=== PATIENT | female | born 1975 | race Caucasian/White ===

== ENCOUNTER 2019-12-06 10:36 | Outpatient (CLI) | payer OTHER, SELFPAY ==
--- NOTE | ~2019-12-06 | MM_ITS ---
EXAMINATION: MM screening cameron BI w urbano HISTORY: Screening mammogram TECHNIQUE: Craniocaudal and mediolateral oblique 3-D tomosynthesis images were obtained and synthetic 2-D images were generated. Bilateral rotated lateral CC views. .CAD analysis was submitted and inter preted. COMPARISON: 05/03/2018, 03/26/2016 bilateral digital screening mammogram examinations BREAST PARENCHYMAL COMPOSITION: The breasts are heterogeneously dense, which may obscure small masses . FINDINGS: There is no evidence of suspicious mass, calcification, or architectural distortion to sugg est malignancy in either breast. There has been no suspicious interval change. IMPRESSION: 1. No mammographic evidence of malignancy. 2. Recommend routine screening mammography in one year. BI-RADS Category 1: Negative Reviewed, dictated and finalized at location A.
== END 2019-12-06 10:37 | disposition home or self-care (01) ==
PROVIDERS: PCP Family Medicine; Visit Provider Nurse Practitioner
DX: Z12.31 Encounter for screening mammogram for malignant neoplasm of breast (principal)
CPT/HCPCS: 77063; 77067

== ENCOUNTER 2020-06-25 06:51 | Outpatient (NON) | payer OTHER, SELFPAY ==
[2020-06-26 00:16] LABS: SARS-CoV-2 RNA PCR Negative
== END 2020-06-25 06:52 ==
PROVIDERS: PCP Physician Assistant; Visit Provider Physician Assistant
DX: Z20.822 Contact with and (suspected) exposure to COVID-19 (principal)
CPT/HCPCS: C9803; U0003; U0005

== ENCOUNTER → 2021-05-22 12:21 | Outpatient (CLI) | payer OTHER, SELFPAY ==
--- NOTE | ~2021-05-22 | US_ITS ---
EXAMINATION: US renal BI EXAM DATE: 05/22/2021 12:43 INDICATION: N28.9 - Disorder of kidney and ureter, unspecified. TECHNIQUE: Multiple grayscale and Doppler images of the kidneys were obtained (by a technologist who performed the scan) and subsequently reviewed. There is no prior study for comparison. FINDINGS: Right kidney: There is normal contour and echogenicity. It measures 9.4 x 3.6 x 5.1 centimeters. Th ere are no focal renal lesions identified. There is no hydronephrosis. Left kidney: There is normal contour and echogenicity. It measures 10.0 x 5.5 x 4.6 centimeters. Th ere are no focal renal lesions identified. There is no hydronephrosis. Bladder unremarkable. IMPRESSION: Sonographically unremarkable kidneys. Reviewed, dictated and finalized at location A. NT SERVICE MANAGER
== END ==
PROVIDERS: PCP Family Medicine; Visit Provider Physician Assistant
DX: N28.9 Disorder of kidney and ureter, unspecified (principal)
CPT/HCPCS: 76775

== ENCOUNTER → 2021-06-12 12:24 | Outpatient (CLI) | payer OTHER, SELFPAY ==
--- NOTE | ~2021-06-12 | XR_ITS ---
EXAMINATION: XR lumbar spine min 4V DATE: 06/12/2021 12:55 INDICATION: Low back pain TECHNIQUE: Anteroposterior, lateral, and bilateral oblique views of the lumbar spine, and cone-down l ateral view of the lumbosacral junction were obtained. COMPARISON: None. FINDINGS: There are 2 mm of retrolisthesis of L5 on S1. The vertebral body heights are maintained. Th ere is no fracture. There is mild facet osteoarthritis of the lower lumbar spine. There is mild loss of intervertebral disc space height at L1-2 and L4-5. Small degenerative osteophytes project from the anterior endplates of multiple vertebral bodies. IMPRESSION: 1. Mild lumbar spondylosis without acute findings. Reviewed, dictated and finalized at location F. ATRIC PHYSICIAN
--- NOTE | ~2021-06-12 | XR_ITS ---
EXAMINATION: XR sacroiliac joints min 3V INDICATION: Low back pain TECHNIQUE: Three views of the sacroiliac joints are obtained. COMPARISON: None available FINDINGS: Bone alignment is normal. There is no fracture. No abnormal sclerosis or erosions are ident ified. The soft tissues are unremarkable. IMPRESSION: 1. Unremarkable sacroiliac joints. Reviewed, dictated and finalized at location F. DEFENSE CONTROL OFFICER
== END ==
PROVIDERS: PCP Physician Assistant; Visit Provider Physician Assistant
DX: M47.816 Spondylosis without myelopathy or radiculopathy, lumbar region (principal)
CPT/HCPCS: 72110; 72202

== ENCOUNTER 2021-08-06 10:00 | Outpatient (CLI) | payer OTHER, SELFPAY ==
--- NOTE | ~2021-08-06 | MM_ITS ---
EXAMINATION: MM screening cameron BI w urbano HISTORY: Screening mammogram TECHNIQUE: Craniocaudal and mediolateral oblique 3-D tomosynthesis images were obtained and synthetic 2-D images were generated. CAD analysis was submitted and interpreted. COMPARISON: 12/02/2019, 05/03/2018, 03/26/2016 bilateral screening mammogram examinations BREAST PARENCHYMAL COMPOSITION: The breasts are heterogeneously dense, which may obscure small masses . FINDINGS: There is no evidence of suspicious mass, calcification, or architectural distortion to sugg est malignancy in either breast. There has been no suspicious interval change. IMPRESSION: 1. No mammographic evidence of malignancy. 2. Recommend routine screening mammography in one year. BI-RADS Category 1: Negative Reviewed, dictated and finalized at location A. HING MILL OPERATOR
== END 2021-08-06 10:01 | disposition home or self-care (01) ==
PROVIDERS: PCP Family Medicine; Visit Provider Obstetrics & Gynecology Gynecology
DX: Z12.31 Encounter for screening mammogram for malignant neoplasm of breast (principal)
CPT/HCPCS: 77063; 77067

== ENCOUNTER 2021-09-29 15:08 | Outpatient (CLI) | payer OTHER, SELFPAY ==
--- NOTE | ~2021-09-29 | DEXA_ITS ---
Bone Density Report Name: LANEY AGUILERA Age: 46 Sex: Female Ethnicity: White Date of : 1975 Indication: postmenopausal; Referring Provider: CHARLY, ARIADNA Study: Bone densitometry was performed. Exam Date: September 29, 2021 Accession number: [id number] Bone Density: Region BMD T-score Z-score Classification AP Spine(L1-L4) 1.040 -0.1 0.6 Normal Femoral Neck (Left) 0.926 0.7 1.3 Normal Total Hip (Left) 0.989 0.4 0.8 Normal Femoral Neck (Right) 0.903 0.5 1.1 Normal Total Hip (Right) 1.019 0.6 1.0 Normal Total Hip Mean 1.004 0.5 0.9 Normal World Health Organization criteria for BMD impression classify patients as: Normal (T-score at or above -1.0), Osteopenia (T-score between -1.0 and -2.5), or Osteoporosis (T-score at or below -2.5). 10-year Fracture Risk: FRAX not reported because: All T-scores for Spine Total, Hip Total, Femoral Neck at or above -1.0 Clinical Information Provided by Patient: Onset of menses at age 11 Number of children 2 Impression: The patient has normal bone mass. Discussion: BONE DENSITY IS ABOVE THE MINIMUM DESIRABLE LEVEL AT ALL SKELETAL SITES TESTED. This patient?s bone mineral density is above the minimum desirable level (T-score -1.0 or better) at all sites measured. The patient should follow a healthful lifestyle (good nutrition with adequate calcium and vitamin D, and appropriate weight-bearing exercise). Follow-Up: Consider repeating this study in 5 years or sooner if there is some new clinical indication. Reported by: KEEGAN on 09/30/2021 1:06:00 PM. Reviewed, dictated and finalized at location A.
== END 2021-09-29 15:09 | disposition home or self-care (01) ==
LOC: ANHIMG 15:18
PROVIDERS: PCP Family Medicine; Visit Provider Internal Medicine Endocrinology, Diabetes & Metabolism
DX: R82.994 Hypercalciuria (principal)
CPT/HCPCS: 77080

== ENCOUNTER 2022-04-01 07:29 | Outpatient (CLI) | payer OTHER, SELFPAY ==
--- NOTE | 2022-04-21 17:39 | WPDSLEEPSTUD ---
Sleep Study Date of Study: 04/01/22 Ordering Provider: MADISON Padilla Interpreting Physician: Ingris Cameron DO Sleep Study Type: Polysomnogram Height: 1.63 m Weight: 79.379 kg Body Mass Index: 30.0 Neck Circumference (inches): 14 [place]: 3 Reason for Sleep Study Daytime hypersomnia Sleep History The patient is a 47-year-old female with anxiety, hyperlipidemia, atopic dermatitis and lumbar disc disease that had a sleep study ordered for evaluation of daytime hypersomnia. The patient denies awakening from sleep short of breath. She frequently awakens at night with heartburn, belching or cough. She occasionally snores but it is rarely loud enough that others complain. She rarely has trouble sleeping when she has a cold. She denies waking up gasping for air throughout the night. She denies having breathing problems at night observed by herself or others. She rarely sweats excessively at night. She denies having heart palpitations or irregular heartbeats during the night. He rarely falls asleep during the day and never while driving. She denies sleep paralysis, cataplexy and hypnagogic / hypnopompic hallucinations. She rarely has trouble at school or work due to sleepiness. She denies feeling of going sleep she rarely has nightmares. She rarely remembers her dreams. She occasionally has thoughts racing through her mind. She rarely feels sad or depressed. She rarely has anxiety. She denies having muscular tension. She occasionally notices parts of her body jerk. She rarely kicks during the night. She denies having crawling and aching feelings in her legs as well as leg pain during the night. He rarely grinds her teeth during sleep and never awakens with a morning jaw pain. She is occasionally bothered by pain during the day and occasionally awakened by pain during the night. She frequently wakes up feeling stiff in the morning. She frequently wakes up with sore or achy muscles. She occasionally wakes up with pain in the neck, spine or other joints. She goes to bed at 9:00 p.m. on weekdays and between 9-10 p.m. on the weekends. He can take or 5-60 minutes to fall asleep she wakes up 2-3 times throughout the night for unknown reasons. It takes her 5-15 minutes to fall back asleep. She wakes up between 7-8 a.m. on both weekdays and weekends. She typically gets 8-9 hours of sleep per night. She will stay in bed for 30 minutes after waking up in the morning. She currently lives with her . She does not consume any caffeinated beverages within 2 hours of bedtime. She does not engage in physical exercise before bedtime. She will watch television before falling asleep. She denies taking naps in the afternoon or the evening. She does not consume any caffeinated beverages throughout the day. She denies tobacco, alcohol and recreational drug use. [facility] Past Medical History Medical History Atopic dermatitis Fatigue TONY (generalized anxiety disorder) HLD (hyperlipidemia) Lumbar degenerative disc disease Surgical History Surgical History History of carpal tunnel repair [place] teeth removed Family History Family History Father Family history of lung cancer Social History Social History Smoking status: Never smoker Second hand tobacco smoke exposure: No Alcohol intake: current Alcohol use details: SOCIAL Substance use: never Substance use type: does not use 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 Gender identity (if verbalized by the patient): Female Spiritual care concerns: Yes Agree to blood products: Yes Medications Home Medications Medication Instructions Recorded Confirmed Type hydrochlorothiazide 25 mg tablet 25 mg PO DAILY 08/01/19
== END 2022-04-02 07:07 | disposition home or self-care (01) ==
PROVIDERS: PCP Family Medicine; Visit Provider Physician Assistant Medical
DX: G47.10 Hypersomnia, unspecified (principal); G47.33 Obstructive sleep apnea (adult) (pediatric); R53.83 Other fatigue
CPT/HCPCS: 95810

== ENCOUNTER 2022-07-16 00:40 | Day surgery (SDC) | payer OTHER, SELFPAY ==
[2022-07-02 09:48] VITALS: BMI 28.3
--- NOTE | 2022-07-15 13:05 | PM.HPGS ---
History of Present Illness History of Present Illness Consent: Risks, benefits, and alternatives have been discussed and questions answered. Patient agrees to proceed with procedure. Chief complaint: neoplasm screening Narrative: Mirlande Braswell is a 47 year old female Referred for colon cancer screening. Review of Systems Review of Systems: All systems reviewed & are unremarkable except as noted in HPI and below PMFSH Past Medical History Medical History Atopic dermatitis Fatigue TONY (generalized anxiety disorder) HLD (hyperlipidemia) Lumbar degenerative disc disease Surgical History Surgical History History of carpal tunnel repair [place] teeth removed Family History Family History Father Family history of lung cancer Social History Social History Smoking status: Never smoker Second hand tobacco smoke exposure: No Alcohol intake: current Drinks per week: 2 Alcohol use details: SOCIAL Substance use: never Substance use type: does not use Living arrangements: with family Occupation/Education: other 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 Gender identity (if verbalized by the patient): Female Spiritual care concerns: No Agree to blood products: Yes Meds Home Medications and Allergies Home Medications Medication Instructions Recorded Confirmed Type hydrochlorothiazide 25 mg tablet 25 mg PO DAILY 08/01/19 07/16/22 History ytwqwyfxtggf-Au-jxnk-minerals 27 1 tablet PO DAILY 08/01/19 07/16/22 History mg-0.4 mg tablet (One Daily Women's) cholecalciferol (vitamin D3) 50 100 mcg PO DAILY 05/15/21 07/16/22 History mcg (2,000 unit) capsule dextroamphetamine-amphetamine ER 20 mg PO DAILY PRN FOCUS 07/02/22 07/16/22 History 20 mg 24hr capsule,extend release (Adderall XR) potassium chloride 20 mEq 20 meq PO DAILY 07/02/22 07/16/22 History tablet,extended release(part/cryst) (Klor-Con M) progesterone micronized 200 mg 200 mg PO QPM 07/02/22 07/16/22 History capsule semaglutide 1 mg/dose (4 mg/3 mL) 1 mg subcut WEEKLY 07/02/22 07/16/22 History subcutaneous pen injector (Ozempic) thyroid (pork) 90 mg tablet (SOFTWARE ENGINEER KERNEL 90 mg PO DAILY 07/02/22 07/16/22 History Thyroid) Allergies Allergy/AdvReac Type Severity Reaction Status Date / Time No Known Allergies Allergy Verified 07/16/22 06:44 Exam Const: General: alert Orientation/consciousness: patient oriented x3 Resp: Auscultation: clear to auscultation bilaterally Cardio: Rhythm: regular rhythm GI: GI Palp: Yes Soft to palpation and No Tenderness to palpation present (GI) Neuro: General: patient oriented x3 Assessment and Plan Assessment and plan (1) Colon cancer screening: Code(s): Z12.11 - Encounter for screening for malignant neoplasm of colon Status: Acute Assessment and Plan: Colonoscopy with possible biopsy or polypectomy or cautery or injection of substances.
[2022-07-16 06:46] VITALS: BP 129/74; PULSE 110; RESP 20; TEMP 36.2; O2SAT 100; BMI 28.5
[2022-07-16] MEDS: LACTATED RINGERS 1,000 ML 150 ML IV CONT (07:04)
[2022-07-16] MEDS: ONDANSETRON INJ 4 MG/2 ML VIAL IV PUSH (07:14)
--- NOTE | 2022-07-16 07:35 | WPDANESEPPF ---
Anes - Initial Pre Proc Eval Procedure: Operation Date: 07/16/22 08:00 Proposed Procedures p Screening Colonoscopy - Artie Francisco MD Date/Time: 07/16/22 07:35 Surgeon: Artie Francisco MD Pre Op Diagnosis: neoplasm screening Patient Data Age: 47 Gender: F Height: 1.63 m Weight: 75.5 kg Last Vital Signs Temp 97.2 F L 07/16/22 06:46 Pulse 110 H 07/16/22 06:46 Resp 20 07/16/22 06:46 BP 129/74 07/16/22 06:46 Pulse Ox 100 07/16/22 06:46 O2 Del Method Room Air 07/16/22 06:46 Allergies Allergy/AdvReac Type Severity Reaction Status Date / Time No Known Allergies Allergy Verified 07/16/22 06:44 Home Medications Medication Instructions Recorded Confirmed Type hydrochlorothiazide 25 mg tablet 25 mg PO DAILY 08/01/19 07/16/22 History uadqlabyphzy-Jf-udng-minerals 27 1 tablet PO DAILY 08/01/19 07/16/22 History mg-0.4 mg tablet (One Daily Women's) cholecalciferol (vitamin D3) 50 100 mcg PO DAILY 05/15/21 07/16/22 History mcg (2,000 unit) capsule dextroamphetamine-amphetamine ER 20 mg PO DAILY PRN FOCUS 07/02/22 07/16/22 History 20 mg 24hr capsule,extend release (Adderall XR) potassium chloride 20 mEq 20 meq PO DAILY 07/02/22 07/16/22 History tablet,extended release(part/cryst) (Klor-Con M) progesterone micronized 200 mg 200 mg PO QPM 07/02/22 07/16/22 History capsule semaglutide 1 mg/dose (4 mg/3 mL) 1 mg subcut WEEKLY 07/02/22 07/16/22 History subcutaneous pen injector (Ozempic) thyroid (pork) 90 mg tablet (SPECIAL EDUCATION DIRECTOR 90 mg PO DAILY 07/02/22 07/16/22 History Thyroid) Patient hx anesthesia problems: none Family hx anesthesia problems: none Results Review: All pre-operative results and documents have been reviewed as part of the pre-operative evaluation. [facility] Past Medical History Medical History Atopic dermatitis Fatigue TONY (generalized anxiety disorder) HLD (hyperlipidemia) Lumbar degenerative disc disease Surgical History Surgical History History of carpal tunnel repair [place] teeth removed Family History Family History Father Family history of lung cancer Social History Social History Smoking status: Never smoker Second hand tobacco smoke exposure: No Alcohol intake: current Drinks per week: 2 Alcohol use details: SOCIAL Substance use: never Substance use type: does not use Living arrangements: with family Occupation/Education: other 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 Gender identity (if verbalized by the patient): Female Spiritual care concerns: No Agree to blood products: Yes Anes - Eval Final PreProcedure Day of Procedure 07/16/22 07:35 Patient weight: normal Heart: regular rate and rhythm Lungs: clear to auscultation Airway: Mallampati scale class II Neurological: alert and oriented Last oral intake: >/= 8 hours ASA classification: II Emergent: no Anesthetic plan: proceed Anesthesia type and monitoring: general GIVS and standard monitoring Results Review: All pre-operative results and documents have been reviewed as part of the pre-operative evaluation. Informed Consent: The patient's anesthetic plan and its attendant risks and benefits were discussed with the patient/family/POA. Questions were solicited and answers provided to the satisfaction of the patient/family/POA.
[2022-07-16 08:17] VITALS: BP 101/61; PULSE 87; RESP 22; O2SAT 100
[2022-07-16 08:27] VITALS: BP 102/56; PULSE 83; RESP 13; O2SAT 100
[2022-07-16 08:37] VITALS: BP 105/63; PULSE 81; RESP 13; O2SAT 100
== END 2022-07-16 08:55 | disposition home or self-care (01) ==
PROVIDERS: PCP Family Medicine; Visit Provider Internal Medicine Gastroenterology
PROC: 0DJD8ZZ Inspection of Lower Intestinal Tract, Via Natural or Artificial Opening Endoscopic (ICD-10-PCS; CPT 45378; principal; 2022-07-16 08:00)
DX: Z12.11 Encounter for screening for malignant neoplasm of colon (principal); E78.5 Hyperlipidemia, unspecified; F41.1 Generalized anxiety disorder; Z79.899 Other long term (current) drug therapy
CPT/HCPCS: 45378; J2405; J2704; J7120

== ENCOUNTER 2022-09-23 21:15 | Emergency (ER) | payer OTHER, SELFPAY ==
[2022-09-23 21:18] VITALS: BP 115/80; PULSE 105; RESP 18; TEMP 37.9; O2SAT 100
[2022-09-24] MEDS: ACETAMINOPHEN 500 MG TABLET 1000 MG PO (01:19)
[2022-09-24 01:23] LABS: Strep Group A RT-PCR DETECTED (Negative)
[2022-09-24 01:39] LABS: Influenza A QL RT-PCR Negative (Negative); Influenza B QL RT-PCR Negative (Negative); RSV RNA, RT-PCR Negative (Negative); SARS-CoV-2 RNA PCR Negative
[2022-09-24 02:01] LABS: Appearance Urine Clear (Clear); Bacteria Urine None Seen /hpf; Bilirubin Urine Negative (Negative); Blood Urine Negative (Negative); Color Urine Yellow (Yellow); Glucose Urine UA Negative (Negative); Ketones Urine 4+ mg/dL (Negative); Leukocyte Esterase Ur Trace LEU/UL (Negative); Nitrate Urine Negative (Negative); Non Pathogenic Casts 0-2; Protein Urine Negative (Negative); Specific Grav Ur 1.023 (1.001-1.035); Squamous Epithelial Cell Urine Few /hpf (Few); WBC Urine 0-5 /hpf
[2022-09-24 02:10] LABS: Add Urine Microscopic? YES
[2022-09-24] MEDS: SODIUM CHLORIDE 0.9% IV 1,000 ML 999 ML IV CONT (02:26)
[2022-09-24] MEDS: KETOROLAC 30 MG/ML VIAL (*BKC) IV PUSH (02:26)
[2022-09-24] MEDS: PENICILLIN G BENZATHINE 1,200,000 UNITS/2 ML SYRINGE 1200000 UNITS IM (02:33)
--- NOTE | 2022-09-24 03:21 | ED.GENADULT ---
HPI - General Adult General Chief complaint: Unspecified Stated complaint: back pain, fever, sore throat Time Seen by Provider: 09/24/22 02:03 History of Present Illness HPI narrative: Patient 47-year-old female who presents the emergency department with chief complaint of generalized malaise. Patient reports that around noon she started having a sore throat and then has had generalized body aches some abdominal discomfort and flank pain. Patient reports she started running a fever reports she is taken some naproxen earlier during the day but reports that she has not really taken much later. The patient reports she just feels generally unwell. Related Data Home Medications Medication Instructions Recorded Confirmed hydrochlorothiazide 25 mg tablet 25 mg PO DAILY 08/01/19 07/16/22 vqoshzswtrph-Sg-llha-minerals 27 1 tablet PO DAILY 08/01/19 07/16/22 mg-0.4 mg tablet (One Daily Women's) cholecalciferol (vitamin D3) 50 100 mcg PO DAILY 05/15/21 07/16/22 mcg (2,000 unit) capsule potassium chloride 20 mEq 20 meq PO DAILY 07/02/22 07/16/22 tablet,extended release(part/cryst) (Klor-Con M) progesterone micronized 200 mg 200 mg PO QPM 07/02/22 07/16/22 capsule semaglutide 1 mg/dose (4 mg/3 mL) 1 mg subcut WEEKLY 07/02/22 07/16/22 subcutaneous pen injector (Ozempic) thyroid (pork) 90 mg tablet (TELESALES TEAM LEADER 90 mg PO DAILY 07/02/22 07/16/22 Thyroid) Allergies Allergy/AdvReac Type Severity Reaction Status Date / Time No Known Allergies Allergy Verified 07/16/22 06:44 Review of Systems Review of Systems: A 10 system review of systems was completed on the patient and is negative except for what is stated in the HPI. Nursing and ancillary documentation was reviewed. [facility] Past Medical History Medical History Atopic dermatitis Fatigue TONY (generalized anxiety disorder) HLD (hyperlipidemia) Lumbar degenerative disc disease Surgical History Surgical History History of carpal tunnel repair [place] teeth removed Family History Family History Father Family history of lung cancer Social History Social History Smoking status: Never smoker Second hand tobacco smoke exposure: No Alcohol intake: current Drinks per week: 2 Alcohol use details: SOCIAL Substance use: never Substance use type: does not use Living arrangements: with family Occupation/Education: other 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 Gender identity (if verbalized by the patient): Female Spiritual care concerns: No Agree to blood products: Yes Exam Narrative: GENERAL: Well-appearing, well-nourished, and in no acute distress. HEAD: Normocephalic, atraumatic. EYES: PERRLA and EOMI. ENT: Nares clear, no rhinorrhea or epistaxis. Mucous membranes moist. Erythema and exudate present on the tonsils NECK: Supple. CHEST: Clear to auscultation. No respiratory distress. HEART: Regular rate and rhythm. No murmur heard. Normal peripheral pulses. ABDOMEN: Soft, nontender, nondistended, normal active bowel sounds. EXTREMITIES: Normal range of motion. No edema. SKIN: Warm, dry, no rash. NEURO: No focal deficits. Alert and oriented x3. PSYCH: Normal mood and affect. Course Vital Signs Vital signs: Vital Signs Temperature 37.9 C H 09/23/22 21:18 Pulse Rate 105 H 09/23/22 21:18 Respiratory Rate 18 09/23/22 21:18 Blood Pressure 115/80 09/23/22 21:18 Pulse Oximetry 100 09/23/22 21:18 Oxygen Delivery Room Air 09/23/22 21:18 Temperature 37.9 C H 09/23/22 21:18 Pulse Rate 105 H 09/23/22 21:18 Respiratory Rate 18 09/23/22 21:18 Blood Pressure 115/80 09/23/22 21:18 Pulse Oximetry 100 09/23/22 21:18 Oxygen Delivery Room Air 09/23/22 21:18
[2022-09-24 03:47] VITALS: BP 122/69; PULSE 80; RESP 18; TEMP 37.2; O2SAT 99
== END 2022-09-24 03:47 | disposition home or self-care (01) ==
PROVIDERS: Emergency Provider Emergency Medicine; PCP Family Medicine
DX: J02.0 Streptococcal pharyngitis (principal); Z20.822 Contact with and (suspected) exposure to COVID-19; E78.5 Hyperlipidemia, unspecified; Z79.85 Long-term (current) use of injectable non-insulin antidiabetic drugs
CPT/HCPCS: 81001; 87637; 87651; 96361; 96372; 96374; 96375; 99284; A9270; J0561; J1100; J1885; J7030

== ENCOUNTER 2022-11-23 09:29 | Outpatient (CLI) | payer OTHER, SELFPAY ==
--- NOTE | ~2022-11-23 | MM_ITS ---
EXAMINATION: MM screening cameron BI w ur[place]ano HISTORY: Screening mammogram TECHNIQUE: Craniocaudal and mediolateral oblique 3-D tomosynthesis images were obtained and synthetic 2-D images were generated. CAD analysis was submitted and interpreted. COMPARISON: August 06, 2021, December 06, 2019, May 03, 2018 bilateral screening mammogram examina tions BREAST PARENCHYMAL COMPOSITION: The breasts are heterogeneously dense, which may obscure small masses . FINDINGS: There is no evidence of suspicious mass, calcification, or architectural distortion to sugg est malignancy in either breast. There has been no suspicious interval change. IMPRESSION: 1. No mammographic evidence of malignancy. 2. Recommend routine screening mammography in one year. BI-RADS Category 1: Negative Reviewed, dictated and finalized at location A.
== END 2022-11-23 09:30 | disposition home or self-care (01) ==
LOC: ANHIMG 09:31
PROVIDERS: PCP Family Medicine; Visit Provider Obstetrics & Gynecology Gynecology
DX: Z12.31 Encounter for screening mammogram for malignant neoplasm of breast (principal)
CPT/HCPCS: 77063; 77067

== ENCOUNTER 2023-11-29 13:49 | Outpatient (CLI) | payer OTHER, SELFPAY ==
--- NOTE | ~2023-11-29 | MM_ITS ---
EXAMINATION: MM screening cameron BI w ur[place]ano HISTORY: Screening TECHNIQUE: Craniocaudal and mediolateral oblique 3-D tomosynthesis images were obtained and synthetic 2-D images were generated. CAD analysis was submitted and interpreted. COMPARISON: No prior mammogram is available for comparison at this institution. Comparison to multipl e prior studies sequentially, with oldest reviewed study dated 03/26/2016. BREAST PARENCHYMAL COMPOSITION: Dense: The breasts are heterogeneously dense, which may obscure small masses FINDINGS: There is no evidence of suspicious mass, calcification, or architectural distortion to sugg est malignancy in either breast. There has been no suspicious interval change. IMPRESSION: 1. No mammographic evidence of malignancy. 2. Recommend routine screening mammography in one year. BI-RADS Category 1: Negative Reviewed, dictated and finalized at location B.
== END 2023-11-29 13:50 | disposition home or self-care (01) ==
LOC: ANHIMG 13:51
PROVIDERS: PCP Family Medicine; Visit Provider Nurse Practitioner
DX: Z12.31 Encounter for screening mammogram for malignant neoplasm of breast (principal)
CPT/HCPCS: 77063; 77067

== ENCOUNTER 2023-12-27 20:30 | Observation (INO) | payer OTHER, SELFPAY ==
--- NOTE | ~2023-12-27 | CT_ITS ---
EXAMINATION: CT abdomen pelvis w con DATE: 12/27/2023 22:19 INDICATION: abd pain, n/v/d TECHNIQUE: Computed tomography (CT) of the abdomen and pelvis was performed with 100 mL Omnipaque-350 intravenous contrast. Automated exposure control and iterative reconstruction technique were employe d. The dose-length product was 749.96 mGy-cm. COMPARISON: None. FINDINGS: Lower thorax: Unremarkable Liver: Right lobe cyst or hemangioma.. Biliary/Gallbladder: Gallbladder is normal. No bile duct dilation. Pancreas: No mass or duct dilation. Spleen: Normal. Adrenals:No mass. Kidneys: No suspicious mass, obstructing stone, or hydronephrosis. GI tract: No small or large bowel dilation. Wall edema affecting multiple loops of ileum in the mid a nd right lower abdomen, with mild surrounding inflammatory change and hyperemia of the vasa recta. No rmal appendix. Mesentery/Peritoneum: No ascites, mass, or free air. Retroperitoneum: No mass. Pelvis: Mostly empty urinary bladder. Normal uterus and left ovary. 3 cm simple appearing right ovari an cyst. Soft Tissues: Soft tissues and body wall unremarkable. Bones: No acute osseous finding. IMPRESSION: Wall edema with surrounding inflammatory change affecting multiple loops of the distal ileum in the m id and right lower abdomen, which may represent infectious, inflammatory, or ischemic enteritis. 3 cm simple appearing right ovarian cyst, recommend pelvic ultrasound follow-up in 6-12 months. Reviewed, dictated and finalized at location K. IMPRESSION: Wall edema with surrounding inflammatory change affecting multiple loops of the distal ileum in the mid and right lower abdomen, which may represent infectiou s, inflammatory, or ischemic enteritis. 3 cm simple appearing right ovarian cyst, recommend pelvic ultrasound follow-up in 6-12 months.
[2023-12-27 20:48] LABS: Basophils Percent Auto 0.3 % (0.2-1.2); Eosinophils Percent Auto 0.1 % (0-4.4); Hematocrit 45.9 % (37.0-47.0); Hemoglobin 15.6 g/dL (12.0-15.0); Immature Granulocyte Absolute 0.06 K/mm3 (0.00-0.031); Immature Granulocyte Percent A 0.5 % (0-0.5); Lymphocytes Absolute Auto 1.19 K/mm3 (0.9-3.2); Lymphocytes Percent Auto 9.3 % (18.3-44.2); Mean Corpuscular Hemoglobin 29.2 pg (26-34); Mean Platelet Volume 8.9 fl (7.4-10.4); Monocytes Percent Auto 7.6 % (2.6-8.5); Neutrophils Absolute Auto 10.5 K/mm3 (1.3-6.7); Neutrophils Percent Auto 82.2 % (45.5-73.1); Platelet Count Result 353 k/mm3 (150-375); Red Blood Count 5.34 M/mm3 (4.2-5.4); White Blood Count 12.8 K/mm3 (4.5-10.0)
[2023-12-27 21:14] LABS: Alanine Aminotransferase 17 U/L (6-35); Albumin Level 4.9 g/dL (3.5-5.1); Alkaline Phosphatase 64 U/L (38-126); Anion Gap 12 mmol/L (4-12); Aspartate Amino Transferase 26 U/L (14-36); Bilirubin,Total 0.7 mg/dL (0.2-1.3); Blood Urea Nitrogen 12 mg/dL (7-17); Calcium 9.5 mg/dL (8.4-10.2); Carbon Dioxide 28 mmol/L (22-30); Chloride 96 mmol/L (98-107); Estimated CRCL calculation 66 ml/min; Estimated Glomerular Filt Rate > 60; Glucose 106 mg/dL (65-110); Lipase 85 U/L (23-300); Potassium 3.9 mmol/L (3.4-5.0); Sodium 136 mmol/L (137-145)
[2023-12-27 21:55] VITALS: BP 123/76; PULSE 101; RESP 20; TEMP 37.2; O2SAT 100
[2023-12-27 22:12] LABS: Appearance Urine Clear (Clear); Bacteria Urine 3+ /hpf; Bilirubin Urine Negative (Negative); Blood Urine Negative (Negative); Color Urine Yellow (Yellow); Glucose Urine UA Negative (Negative); Ketones Urine 3+ mg/dL (Negative); Leukocyte Esterase Ur Negative LEU/UL (Negative); Nitrate Urine Negative (Negative); Non Pathogenic Casts 0-2; Protein Urine Trace mg/dL (Negative); RBC Urine 0-2 /hpf (0-2); Specific Grav Ur 1.023 (1.001-1.035); Squamous Epithelial Cell Urine Moderate /hpf (Few); Urobilinogen Urine 0.2 mg/dL (<2.0); WBC Urine 0-5 /hpf (0-3)
[2023-12-27 22:14] LABS: Add Urine Microscopic? YES
[2023-12-28] VITALS (7 sets, daily range): BP systolic 90–103; BP diastolic 50–60; PULSE 65–104; RESP 16–18; TEMP 36.4–37.3; O2SAT 98–100
[2023-12-28] MEDS: MORPHINE SULFATE (*CRX) 4 MG/ML INJ IV PUSH ×4 (02:05→17:38)
[2023-12-28] MEDS: SODIUM CHLORIDE 0.9% IV 1,000 ML 999 ML IV CONT ×2 (02:05→04:24)
[2023-12-28] MEDS: ONDANSETRON INJ 4 MG/2 ML VIAL IV PUSH (02:06)
[2023-12-28] MEDS: DICYCLOMINE HCL INJ 20 MG/2 ML VIAL IM (02:06)
--- NOTE | 2023-12-28 03:25 | ED.GENADULT ---
HPI - General Adult General Chief complaint: Abdominal Pain Stated complaint: abdominal pain Time Seen by Provider: 12/28/23 01:43 History of Present Illness HPI narrative: Patient is a 48-year-old female who presents emergency department with chief complaint of abdominal pain and nausea. Patient reports that she had been 2 [place] and reports that when she was traveling back when she arrived in dialysis started having abdominal pain diarrhea the patient states this is very severe cramping feeling patient denies fever patient reports continued on. The patient reports no prior abdominal surgeries denies fever Related Data Home Medications Medication Instructions Recorded Confirmed hydrochlorothiazide 25 mg tablet 25 mg PO DAILY 08/01/19 07/16/22 xstbsofbcctd-Xp-vkdt-minerals 27 1 tablet PO DAILY 08/01/19 07/16/22 mg-0.4 mg tablet (One Daily Women's) cholecalciferol (vitamin D3) 50 100 mcg PO DAILY 05/15/21 07/16/22 mcg (2,000 unit) capsule potassium chloride 20 mEq 20 meq PO DAILY 07/02/22 07/16/22 tablet,extended release(part/cryst) (Klor-Con M) progesterone micronized 200 mg 200 mg PO QPM 07/02/22 07/16/22 capsule semaglutide 1 mg/dose (4 mg/3 mL) 1 mg subcut WEEKLY 07/02/22 07/16/22 subcutaneous pen injector (Ozempic) thyroid (pork) 90 mg tablet (TEST TUBE MAKER 90 mg PO DAILY 07/02/22 07/16/22 Thyroid) Allergies Allergy/AdvReac Type Severity Reaction Status Date / Time No Known Allergies Allergy Verified 12/27/23 20:33 Review of Systems Review of Systems: A 10 system review of systems was completed on the patient and is negative except for what is stated in the HPI. Nursing and ancillary documentation was reviewed. [facility] Past Medical History Medical History Atopic dermatitis Fatigue TONY (generalized anxiety disorder) HLD (hyperlipidemia) Lumbar degenerative disc disease Surgical History Surgical History History of carpal tunnel repair [place] teeth removed Family History Family History Father Family history of lung cancer Social History Social History Smoking status: Never smoker Second hand tobacco smoke exposure: No Alcohol intake: current Drinks per week: 2 Alcohol use details: SOCIAL Substance use: never Substance use type: does not use Living arrangements: with family Occupation/Education: other 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 Gender identity (if verbalized by the patient): Female Spiritual care concerns: No Agree to blood products: Yes Exam Narrative: GENERAL: Well-appearing, well-nourished, and in mild acute pain distress. HEAD: Normocephalic, atraumatic. EYES: PERRLA and EOMI. ENT: Nares clear, no rhinorrhea or epistaxis. Mucous membranes moist. NECK: Supple. CHEST: Clear to auscultation. No respiratory distress. HEART: Regular rate and rhythm. No murmur heard. Normal peripheral pulses. ABDOMEN: Soft, diffusely tender to palpation, nondistended, normal active bowel sounds. EXTREMITIES: Normal range of motion. No edema. SKIN: Warm, dry, no rash. NEURO: No focal deficits. Alert and oriented x3. PSYCH: Normal mood and affect. Course Vital Signs Vital signs: Vital Signs Temperature 37.2 C 12/27/23 21:55 Pulse Rate 101 H 12/27/23 21:55 Respiratory Rate 20 12/27/23 21:55 Blood Pressure 123/76 12/27/23 21:55 Pulse Oximetry 100 12/27/23 21:55 Temperature 37.2 C 12/27/23 21:55 Pulse Rate 104 H 12/28/23 03:16 Respiratory Rate 18 12/28/23 03:16 Blood Pressure 103/56 L 12/28/23 03:16 Pulse Oximetry 100 12/28/23 03:16 Medical Decision Making MDM Narrative Medical decision making narrative: Differential diagnosis includes gastritis, col
[2023-12-28 03:37] LABS: Lactic Acid Reflex 1.2 mmol/L (0.7-2.0)
[2023-12-28] MEDS: metroNIDAZOLE 500 MG/ISO 100ML 500 MG/100 ML BAG 100 MG IVPB ×3 (04:24→21:05)
--- NOTE | 2023-12-28 05:08 | ADMGEN ---
This patient, Mirlande Braswell, was admitted to 2 Medical Room 241-01. Patient/family oriented to hospital policies and general routines including ID bracelet, bed and alarms, visiting hours, pain management, procedures, bathroom and other care routines, personal items, smoking policy, room service/diet, and visiting hours. Information on how to activate the Rapid Response Team has been discussed. Patient/Family are encouraged to report perceived risks to care and to ask questions if they do not understand what they are told or what they should do.
[2023-12-28] MEDS: levoFLOXacin 750 MG/D5W 150 ML 750 MG/150 ML BAG 100 MG IVPB (05:15)
[2023-12-28] MEDS: SODIUM CHLORIDE 0.9% IV 1,000 ML 125 ML IV CONT ×3 (05:19→21:05)
--- NOTE | 2023-12-28 07:18 | PM.IMHP ---
H&P: HPI History of Present Illness Date/Time: 12/28/23 07:18 Chief Complaint: abd pain Narrative: 48-year-old female with PMH/o post menopausal, vit d deficiency, hypothyroidism admitted from ED with chief complaint of abdominal pain and nausea. Patient reports that she had been to [place], ate that the airport nd shortly after started having abd cramping and diarrhea. Denies any blood in stool. Describes pain as sever cramping,intermittent. Was not trying to eat anything but was trying to stay hydrated, denies fever,chills. No prior abdominal surgeries. -recent hospitalization-none -recent antibiotic use- none. She is non smoker and reports occasional alcohol. Review of Systems Constitutional: Constitutional: Denies body ache(s) and Denies chills ENT: Reports Normal hearing present Cardiovascular: Cardiovascular: Denies chest pain, Denies diaphoresis, Denies leg edema and Denies palpitations Respiratory: Respiratory: Denies chest congestion, Denies cough and Denies hemoptysis Gastrointestinal: Gastrointestinal: Reports abdominal pain, Reports diarrhea and Reports nausea Genitourinary: Genitourinary: Denies hematuria Neurologic: Denies confusion, Denies vertigo and Denies headache(s) Psychiatric: Psychiatric: Denies anxiety and Denies confusion [facility] Past Medical History Medical History Atopic dermatitis Fatigue TONY (generalized anxiety disorder) HLD (hyperlipidemia) Lumbar degenerative disc disease Surgical History Surgical History History of carpal tunnel repair [place] teeth removed Family History Family History Father Family history of lung cancer Social History Social History Smoking status: Never smoker Second hand tobacco smoke exposure: No Alcohol intake: current Drinks per week: 1 Alcohol use details: SOCIAL Substance use: never Substance use type: does not use Do You Feel Safe in your Home?: Yes Lack of Transportation: No Lack of Food: Never True Current Housing: I Do Not Have Housing Concerned About Future Housing: No Difficulty Paying Gas/Electric Bills: No Difficulty Paying for Meds: No Currently Unemployed: No Education: Associate Degree Difficulty w/ Childcare or Family Care: No Living arrangements: with family Occupation/Education: other 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 Gender identity (if verbalized by the patient): Female Spiritual care concerns: No Agree to blood products: Yes Comments reports seeing endocrinologsit who treats her with HCTZ and vit d for hypocalcemia Meds Home Medications and Allergies Home Medications Medication Instructions Recorded Confirmed Type hydrochlorothiazide 25 mg tablet 25 mg PO DAILY 08/01/19 12/28/23 History avfzthzpeskd-Xu-fjqo-minerals 27 1 tablet PO DAILY 08/01/19 12/28/23 History mg-0.4 mg tablet (One Daily Women's) cholecalciferol (vitamin D3) 50 100 mcg PO DAILY 05/15/21 12/28/23 History mcg (2,000 unit) capsule potassium chloride 20 mEq 20 meq PO DAILY 07/02/22 12/28/23 History tablet,extended release(part/cryst) (Klor-Con M) progesterone micronized 200 mg 200 mg PO QPM 07/02/22 12/28/23 History capsule thyroid (pork) 90 mg tablet (DATA TECHNICIAN 90 mg PO DAILY 07/02/22 12/28/23 History Thyroid) Allergies Allergy/AdvReac Type Severity Reaction Status Date / Time No Known Allergies Allergy Verified 12/27/23 20:33 Vital Signs Vital Signs - 24 hr 12/27/23 21:55 12/28/23 03:16 12/28/23 04:32 Temperature 98.9 F Pulse Rate 101 H 104 H 102 H Respiratory Rate 20 18 16 Blood Pressure 123/76 103/56 L 101/50 L Pulse Oximetry 100 100 99 Oxygen Delivery 12/28/23 05:11 12/28/23 05:22 Temperature 99.2 F Pulse Rate 96
[2023-12-28] MEDS: POTASSIUM CHLORIDE 20 MEQ ER TABLET PO (12:38)
[2023-12-28] MEDS: KETOROLAC 15 MG/ML VIAL (*BKC) IV PUSH ×2 (12:38→21:07)
[2023-12-28] MEDS: ACETAMINOPHEN 325 MG TABLET 650 MG PO (15:59)
[2023-12-29] VITALS (7 sets, daily range): BP systolic 88–105; BP diastolic 55–62; PULSE 71–76; RESP 16–18; TEMP 36.4–36.8; O2SAT 97–100
[2023-12-29] MEDS: levoFLOXacin 750 MG/D5W 150 ML 750 MG/150 ML BAG 100 MG IVPB (05:11)
--- NOTE | 2023-12-29 05:19 | PC.NURSE ---
Dr. Myers notified pt BP sustaining between 85/50s-90/60s, pt asymptomatic and currently receiving fluids at 125ml/hr. No new orders, continue to monitor.
[2023-12-29] MEDS: KETOROLAC 15 MG/ML VIAL (*BKC) IV PUSH (06:17)
[2023-12-29] MEDS: THYROID 30 MG TABLET 90 MG PO (06:18)
[2023-12-29] MEDS: metroNIDAZOLE 500 MG/ISO 100ML 500 MG/100 ML BAG 100 MG IVPB ×3 (06:42→21:41)
[2023-12-29 07:25] LABS: Hematocrit 36.8 % (37.0-47.0); Mean Corpuscular HGB Conc 32.6 g/dl (32-36); Mean Corpuscular Hemoglobin 29.1 pg (26-34); Mean Corpuscular Volume 89.1 fl (80-100); Platelet Count Result 221 k/mm3 (150-375); Red Blood Count 4.13 M/mm3 (4.2-5.4); Red Cell Distribution Width 13.1 % (11.5-14.5); White Blood Count 5.4 K/mm3 (4.5-10.0)
--- NOTE | 2023-12-29 07:31 | PM.IMPN ---
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 Patient reports that she had been to [place], ate that the airport nd shortly after started having abd cramping and diarrhea. Denies any blood in stool. Describes pain as sever cramping,intermittent. Was not trying to eat anything but was trying to stay hydrated, denies fever,chills. No prior abdominal surgeries. -recent hospitalization-none -recent antibiotic use- none. She is non smoker and reports occasional alcohol. 12/28- Pt is seen and examined at the bedside. WBC is down to 5.4 (12.8). Noted soft BP- 250cc bolus ordered. Pt is not symptomatic. Stool culture was obtain -results pending. advance diet if able. Review of Systems Constitutional: Constitutional: Denies body ache(s), Denies chills and Denies headache(s) ENT: Reports Normal hearing present, Denies vertigo and Denies headache(s) Cardiovascular: Cardiovascular: Denies chest pain, Denies diaphoresis, Denies leg edema and Denies palpitations Respiratory: Respiratory: Denies chest congestion, Denies cough and Denies hemoptysis Gastrointestinal: Gastrointestinal: Reports abdominal pain, Reports diarrhea and Reports nausea Genitourinary: Genitourinary: Denies hematuria Neurologic: Reports Normal hearing present, Denies confusion, Denies vertigo and Denies headache(s) Psychiatric: Psychiatric: Denies anxiety and Denies confusion Endocrine: Endocrine: Denies palpitations Exam Const: General: No confusion Resp: Effort & Inspection: normal respiratory effort Cardio: Rate: regular rate Rhythm: regular rhythm GI: GI Palp: Yes Soft to palpation Auscultation: normal bowel sounds Neuro: General: No confusion Cranial nerves: Yes Normal hearing present Extrem: General: normal to inspection Psych: Mental Status: mental status grossly normal Affect: normal affect Objective Data Vital Signs Vital Signs: Vital Signs - 24 hr 12/28/23 07:54 12/28/23 08:00 12/28/23 14:00 Temperature 97.7 F Pulse Rate 74 Respiratory Rate 16 Blood Pressure 102/54 L Pulse Oximetry 98 100 Oxygen Delivery Room Air Room Air 12/28/23 19:30 12/28/23 22:06 12/29/23 02:39 Temperature 98.1 F 97.6 F 97.6 F Pulse Rate 65 67 71 Respiratory Rate 18 18 18 Blood Pressure 93/51 L 90/60 L 88/55 L Pulse Oximetry 100 99 97 Oxygen Delivery 12/29/23 03:46 12/29/23 05:05 12/29/23 05:10 Temperature 97.9 F Pulse Rate 76 Respiratory Rate 18 Blood Pressure 90/62 L 88/58 L Pulse Oximetry 99 Oxygen Delivery Intake/Output Intake/Output: Intake & Output 12/26/23 12/27/23 12/28/23 12/29/23 23:59 23:59 23:59 23:59 Intake Total 4154.6 600 Output Total 2800 300 Balance 1354.6 300 Meds/Results Medications: Active Medications Generic Name Dose Route Start Last Admin Trade Name Freq PRN Reason Stop Dose Admin Acetaminophen 650 mg 12/28/23 04:21 12/28/23 15:59 Acetaminophen 325 Mg Tablet PO 650 mg Q4H PRN Administration Mild Pain (1-3) or Fever Hydrochlorothiazide 25 mg 12/29/23 09:00 Hydrochlorothiazide 25 Mg Tablet PO MIKA
[2023-12-29 07:47] LABS: Alanine Aminotransferase 12 U/L (6-35); Albumin Level 3.1 g/dL (3.5-5.1); Alkaline Phosphatase 38 U/L (38-126); Anion Gap 6 mmol/L (4-12); Aspartate Amino Transferase 20 U/L (14-36); Bilirubin,Total 0.3 mg/dL (0.2-1.3); Blood Urea Nitrogen 5 mg/dL (7-17); Calcium 7.4 mg/dL (8.4-10.2); Carbon Dioxide 23 mmol/L (22-30); Chloride 106 mmol/L (98-107); Estimated CRCL calculation 83 ml/min; Estimated Glomerular Filt Rate > 60; Glucose 81 mg/dL (65-110); Potassium 3.7 mmol/L (3.4-5.0); Sodium 135 mmol/L (137-145)
[2023-12-29] MEDS: SODIUM CHLORIDE 0.9% IV 1,000 ML 999 ML IV CONT (09:09)
[2023-12-29] MEDS: SODIUM CHLORIDE 0.9% IV 1,000 ML 125 ML IV CONT ×2 (09:10→13:31)
[2023-12-29] MEDS: CHOLECALCIFEROL 1,000 UNITS TABLET 4000 UNITS PO (09:13)
[2023-12-29] MEDS: POTASSIUM CHLORIDE 20 MEQ ER TABLET PO (09:13)
[2023-12-29] MEDS: DICYCLOMINE HCL 10 MG CAPSULE 20 MG PO ×2 (13:31→20:43)
[2023-12-30] MEDS: KETOROLAC 15 MG/ML VIAL (*BKC) IV PUSH ×2 (00:58→12:54)
[2023-12-30] MEDS: SODIUM CHLORIDE 0.9% IV 1,000 ML 125 ML IV CONT (00:58)
[2023-12-30] MEDS: DICYCLOMINE HCL 10 MG CAPSULE 20 MG PO ×2 (04:26→12:52)
[2023-12-30] MEDS: levoFLOXacin 750 MG/D5W 150 ML 750 MG/150 ML BAG 100 MG IVPB (04:27)
[2023-12-30 05:23] VITALS: BP 102/64; PULSE 83; RESP 17; TEMP 36.6; O2SAT 99
[2023-12-30 05:36] LABS: Hematocrit 37.8 % (37.0-47.0); Hemoglobin 12.2 g/dL (12.0-15.0); Mean Corpuscular HGB Conc 32.3 g/dl (32-36); Mean Platelet Volume 9.4 fl (7.4-10.4); Platelet Count Result 241 k/mm3 (150-375); Red Cell Distribution Width 13.2 % (11.5-14.5); White Blood Count 5.8 K/mm3 (4.5-10.0)
[2023-12-30 05:58] LABS: Alanine Aminotransferase 11 U/L (6-35); Albumin Level 2.9 g/dL (3.5-5.1); Alkaline Phosphatase 37 U/L (38-126); Anion Gap 6 mmol/L (4-12); Aspartate Amino Transferase 21 U/L (14-36); Bilirubin,Total 0.4 mg/dL (0.2-1.3); Blood Urea Nitrogen 2 mg/dL (7-17); Calcium 7.8 mg/dL (8.4-10.2); Carbon Dioxide 23 mmol/L (22-30); Chloride 107 mmol/L (98-107); Estimated CRCL calculation 73 ml/min; Estimated Glomerular Filt Rate > 60; Glucose 85 mg/dL (65-110); Potassium 3.5 mmol/L (3.4-5.0); Sodium 136 mmol/L (137-145)
[2023-12-30] MEDS: metroNIDAZOLE 500 MG/ISO 100ML 500 MG/100 ML BAG 100 MG IVPB ×2 (06:05→13:54)
[2023-12-30] MEDS: THYROID 30 MG TABLET 90 MG PO (06:08)
--- NOTE | 2023-12-30 07:15 | PM.IMPN ---
Progress Note: A&P Assessment and Plan (1) Enteritis: Code(s): K52.9 - Noninfective gastroenteritis and colitis, unspecified Status: Acute Assessment and Plan: gastritis vs colitis vs diverticulitis vs enteritis - started on flagyl and levoflaxacin per ED - continue IV fluids - will order stool culture- pending - pain meds prn, nausea meds prn - monitor for fever, routine daily CBC, CMP - stool culture result: stool cultures so far- salmonella/shigella- pending, others- negative so far. (2) Abdominal pain: Code(s): R10.9 - Unspecified abdominal pain Status: Acute Assessment and Plan: see above Plan h/o hypocalcemia- donor specialist treats her with vit D and HCTZ- will continue Time Spent With Patient Time with patient: 25 - 35 minutes Subjective Date/time seen: 12/30/23 07:15 Interval history: 48-year-old female with PMH/o post menopausal, vit d deficiency, hypothyroidism admitted from ED with chief complaint of abdominal pain and nausea. Patient reports that she had been to [place], ate that the airport nd shortly after started having abd cramping and diarrhea. Denies any blood in stool. Describes pain as sever cramping,intermittent. Was not trying to eat anything but was trying to stay hydrated, denies fever,chills. No prior abdominal surgeries. -recent hospitalization-none -recent antibiotic use- none. She is non smoker and reports occasional alcohol. 12/28- Pt is seen and examined at the bedside. WBC is down to 5.4 (12.8). Noted soft BP- 250cc bolus ordered. Pt is not symptomatic. Stool culture was obtain -results pending. advance diet if able. 12/29- stool cultures so far- salmonella/shigella- pending, others- negative so far. BP improved. Review of Systems Constitutional: Constitutional: Denies body ache(s), Denies chills and Denies headache(s) ENT: Reports Normal hearing present, Denies vertigo and Denies headache(s) Cardiovascular: Cardiovascular: Denies chest pain, Denies diaphoresis, Denies leg edema and Denies palpitations Respiratory: Respiratory: Denies chest congestion, Denies cough and Denies hemoptysis Gastrointestinal: Gastrointestinal: Reports abdominal pain, Reports diarrhea and Reports nausea Genitourinary: Genitourinary: Denies hematuria Neurologic: Reports Normal hearing present, Denies confusion, Denies vertigo and Denies headache(s) Psychiatric: Psychiatric: Denies anxiety and Denies confusion Endocrine: Endocrine: Denies palpitations Exam Const: General: No confusion Orientation/consciousness: No confusion Resp: Effort & Inspection: normal respiratory effort Cardio: Rate: regular rate Rhythm: regular rhythm GI: Auscultation: normal bowel sounds Neuro: General: No confusion Cranial nerves: Yes Normal hearing present Extrem: General: normal to inspection Psych: Mental Status: mental status grossly normal Affect: normal affect Objective Data Vital Signs Vital Signs: Vital Signs - 24 hr 12/29/23 09:12 12/29/23 08:00 12/29/23 14:00 Temperature 97.8 F Pulse Rate 76 Respiratory Rate 16 Blood Pressure 98/58 L 105/56 L Pulse Oximetry 100 Oxygen Delivery Room Air 12/29/23 19:33 12/30/23 05:23 Temperature 98.2 F 97.8 F Pulse Rate 73 83 Respiratory Rate 17 17 Blood Pressure 98/55 L 102/64 Pulse Oximetry 100 99 Oxygen Delivery Intake/Output Intake/Output: Intake & Output 12/27/23 12/28/23 12/29/23 12/30/23 23:59 23:59 23:59 23:59 Intake Total 4154.6 5143.8 808.3 Output Total 2800 300 Balance 1354.6 4843.8 808.3 Meds/Results Medications: Active Medications Generic Name Dose Route Start Last Admin Trade Name Freq PRN Reason Stop Dose Admin Acetaminophen 650 mg 12/28/23 04:21 12/28/23 15:59 Acetaminophen 325 Mg Tablet PO 650 mg Q4H PRN Administration Mild Pain (1-3) or Fever Dicyclomine HCl 20 mg 12/29/23 11:54 12/30/23 04:26 Dicyclomine Hcl 10 Mg Capsule PO
[2023-12-30] MEDS: CHOLECALCIFEROL 1,000 UNITS TABLET 4000 UNITS PO (08:17)
[2023-12-30] MEDS: hydroCHLOROthiazide 25 MG TABLET PO (08:17)
[2023-12-30] MEDS: POTASSIUM CHLORIDE 20 MEQ ER TABLET PO (08:17)
[2023-12-30 14:00] VITALS: BP 105/55; PULSE 65; RESP 18; TEMP 36.8; O2SAT 96
--- NOTE | 2023-12-30 14:22 | PM.DS ---
DS: Admitting Diagnosis Discharge Date 12/29 Admitting Diagnosis diarrhea DS: Discharge Diagnosis Discharge Diagnosis (1) Enteritis: Code(s): K52.9 - Noninfective gastroenteritis and colitis, unspecified Status: Acute Assessment and Plan: gastritis vs colitis vs diverticulitis vs enteritis - started on flagyl and levoflaxacin per ED - continue IV fluids - will order stool culture- pending - pain meds prn, nausea meds prn - monitor for fever, routine daily CBC, CMP - stool culture result: stool cultures so far- salmonella/shigella- pending, others- negative so far. 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 cc: ~ Progress Note: A&P Assessment and Plan (1) Enteritis: Code(s): K52.9 - Noninfective gastroenteritis and colitis, unspecified Status: Acute Assessment and Plan: gastritis vs colitis vs diverticulitis vs enteritis - started on flagyl and levoflaxacin per ED - continue IV fluids - will order stool culture- pending - pain meds prn, nausea meds prn - monitor for fever, routine daily CBC, CMP - stool culture result: stool cultures so far- salmonella/shigella- pending, others- negative so far. 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 Patient reports that she had been to [place], ate that the airport nd shortly after started having abd cramping and diarrhea. Denies any blood in stool. Describes pain as sever cramping,intermittent. Was not trying to eat anything but was trying to stay hydrated, denies fever,chills. No prior abdominal surgeries. -recent hospitalization-none -recent antibiotic use- none. She is non smoker and reports occasional alcohol. Time Spent with Patient Time attestation: Total time spent providing and/or coordinating discharge services: Exam Narrative: still somewhat tender but cramping is a lot better Const: General: No confusion Orientation/consciousness: No confusion Resp: Effort & Inspection: normal respiratory effort Cardio: Rate: regular rate Rhythm: regular rhythm GI: Auscultation: normal bowel sounds Neuro: General: No confusion Cranial nerves: Yes Normal hearing present Extrem: General: normal to inspection Psych: Mental Status: mental status grossly normal Affect: normal affect DS: Data Data Completed and Pending Completed studies during hospitalization: abd/pelvis CT Pending studies at discharge: stool culture Labs on day of discharge: Labs from last 24 hours 12/30/23 04:49 WBC 5.8 RBC 4.20 Hgb 12.2 Hct 37.8 MCV 90.0 MCH 29.0 MCHC 32.3 RDW 13.2 Plt Count 241 MPV 9.4 Sodium 136 L Potassium 3.5 Chloride 107 Carbon Dioxide 23 Anion Gap 6 BUN 2 L Creatinine 0.80 Estim Creat Clear Calc 73 Estimated GFR > 60 Glucose 85 Calcium 7.8 L Total Bilirubin 0.4 AST 21 ALT 11 Alkaline Phosphatase 37 L Total Protein
--- NOTE | 2024-01-07 13:02 | PC.NURSE ---
Stool cx is negative.
== END 2023-12-30 14:59 | disposition home or self-care (01) ==
LOC: ANHED 12-28 04:23 → ANH2MED 12-28 04:49
PROVIDERS: Nurse Practitioner; Admitting Provider Internal Medicine; Emergency Provider Emergency Medicine; PCP Family Medicine; Visit Provider Internal Medicine
DX: K52.9 Noninfective gastroenteritis and colitis, unspecified (principal); E78.5 Hyperlipidemia, unspecified; F41.1 Generalized anxiety disorder; E55.9 Vitamin D deficiency, unspecified; E03.9 Hypothyroidism, unspecified; Z79.85 Long-term (current) use of injectable non-insulin antidiabetic drugs
CPT/HCPCS: 36415; 74177; 80053; 81001; 83605; 83690; 85025; 85027; 87045; 87427; 87449; 96361; 96365; 96372; 96375; 96376; 99285; A9270; G0378; J0500; J1836; J1885; J1956; J2270; J2405; J7030; Q9967

== ENCOUNTER 2024-02-29 12:13 | Outpatient (CLI) | payer OTHER, SELFPAY ==
[2024-02-29 14:08] LABS: Influenza A QL RT-PCR Negative (Negative); Influenza B QL RT-PCR Negative (Negative); RSV RNA, RT-PCR Positive (Negative); SARS-CoV-2 RNA PCR Negative (Negative)
== END 2024-02-29 12:14 | disposition home or self-care (01) ==
LOC: ANHLAB 12:14
PROVIDERS: PCP Family Medicine; Visit Provider Family Medicine
DX: J06.9 Acute upper respiratory infection, unspecified (principal)
CPT/HCPCS: 87637

== ENCOUNTER 2024-03-01 13:07 | Outpatient (CLI) | payer OTHER, SELFPAY ==
--- NOTE | ~2024-03-01 | XR_ITS ---
XR chest 2V Ordering provider: Cee Hawkins MD History: 48 years Female with . COUGH, CHEST PAIN, RECENT DX RSV . Comparison: None. FINDINGS: MEDIASTINUM: The cardiac silhouette is not enlarged. LUNGS: No infiltrates, effusions or pneumothorax. OTHER: No free air under the diaphragm. IMPRESSION: No acute cardiopulmonary pathology. Reviewed, dictated and finalized at location A.
== END 2024-03-01 13:08 | disposition home or self-care (01) ==
LOC: ANHIMG 13:09
PROVIDERS: PCP Family Medicine; Visit Provider Family Medicine
DX: R05.9 Cough, unspecified (principal); R07.9 Chest pain, unspecified
CPT/HCPCS: 71046

== ENCOUNTER 2024-03-20 15:17 | Outpatient (CLI) | payer OTHER, SELFPAY ==
--- NOTE | ~2024-03-20 | US_ITS ---
EXAM: PELVIC ULTRASOUND HISTORY: OVARIAN CYST COMPARISON: Reference is made to a CT examination of the abdomen and pelvis dated 12/27/2023 TECHNIQUE: Sonographic evaluation of the female pelvis was performed assessing grayscale appearance a nd color Doppler flow. Spectral analysis was also performed. FINDINGS: UTERUS: Measures 10.8 x 4.6 x 5.8 cm. The endometrial complex measures 5 mm, and is not thickened. RIGHT OVARY: 5.7 x 4.9 x 5.1 cm Within the right ovary is a rounded anechoic avascular focus measuring 3.5 x 3.5 x 3.5 cm, consistent with a simple cyst. No septations or vascularity is identified. Increased through transmission is noted. Arterial and venous flow is present. LEFT OVARY: 2.1 x 1.3 x 2.7 cm Arterial and venous flow is present. BLADDER: The bladder is full, and unremarkable. IMPRESSION: Single simple cyst within the right ovary, as detailed above. In a premenopausal patient, no follow-up is needed for cysts of this size. Given that this patient is perimenopausal and on hormone placement, yearly follow-up with ultrasound may be performed until resolved Reviewed, dictated and finalized at location A. IMPRESSION: Single simple cyst within the right ovary, as detailed above. In a premenopausal patient, no follow-up is needed for cysts of this size. Given that this patient is perimenopausal and on hormone placement, yearly foll ow-up with ultrasound may be performed until resolved
== END 2024-03-20 15:18 | disposition home or self-care (01) ==
LOC: MICIMG 15:18
PROVIDERS: PCP Obstetrics & Gynecology Gynecology; Visit Provider Obstetrics & Gynecology Gynecology
DX: N83.202 Unspecified ovarian cyst, left side (principal)
CPT/HCPCS: 76856

== ENCOUNTER 2024-04-05 12:57 | Outpatient (CLI) | payer OTHER, SELFPAY ==
[2024-04-05 14:30] LABS: Anion Gap 9 mmol/L (4-12); Blood Urea Nitrogen 19 mg/dL (7-17); Calcium 9.2 mg/dL (8.4-10.2); Carbon Dioxide 30 mmol/L (22-30); Chloride 96 mmol/L (98-107); Estimated Glomerular Filt Rate > 60; Glucose 87 mg/dL (65-110); Potassium 3.3 mmol/L (3.4-5.0); Sodium 135 mmol/L (137-145)
== END 2024-04-05 12:58 | disposition home or self-care (01) ==
PROVIDERS: Anesthesiology; PCP Family Medicine; Visit Provider Obstetrics & Gynecology Gynecology
DX: Z79.899 Other long term (current) drug therapy (principal); Z01.818 Encounter for other preprocedural examination
CPT/HCPCS: 36415; 80048

== ENCOUNTER 2024-04-10 01:19 | Day surgery (SDC) | payer OTHER, SELFPAY ==
[2024-04-05 09:36] VITALS: BMI 28.9
--- NOTE | 2024-04-05 09:37 | PC.NURSE ---
Report to the Outpatient Waiting Room, entrance under the green pavilion located off [facility], at time _1200_ on date _[id number]_. Planned Procedure Time: _2pm_.? Time changes happen often and if your time is changed the preop area will call you the afternoon before. - You and your visitor will be asked to self-screen and do not enter if you have any COVID symptoms. Please call surgeon if you need to reschedule. - A mask is optional within the hospital at this time. Patients may have clear liquids (water, carbonated beverages, clear teas, apple juice) until 3 hours prior to surgery with a maximum of 20 ounces. - No food from midnight until time of surgery and no smoking Take only the following medications with a SIP of water on the morning of surgery: __Thyroid DO NOT STOP ANY OF YOUR OTHER PRESCRIPTION MEDICATIONS PRIOR TO SURGERY EXCEPT THE FOLLOWING Medications to discontinue per physician ____All vitamins and supplements Date to take last npgw__[phone]___ Please no make-up, nail kazakh, hairspray, perfume, deodorant, or body powder the day of surgery.? No jewelry (including any body piercings) or valuables the day of surgery, leave them at home.? Please take a shower or bath the night before, or the morning of, surgery with an antibacterial soap.? Wear comfortable, loose fitting clothing.? - Jewelry must be removed prior to entering the operating room.? Rings and piercings that are not removed may be cut off. - The hospital will not accept responsibility for valuables.? - Please leave all valuables, including medications, at home the day of surgery. If you are going home after surgery, a licensed electric screw driver operator must drive you home.? - NO public transportation without another adult if you receive anesthesia. - We recommend that an adult stay with you for 24 hours following discharge. - We also recommend that you do not drive, make important decision, drink alcoholic beverages, or take any drugs that were not prescribed by your health care provider for at least 24 hours after your discharge time. Follow any additional instructions given to you from your surgeon. Telephone instructions given to __Mirlande__and asked if any additional questions and then verbalized understanding. Patient advised to call surgeon office or pre surgery nurse liaison [phone] if any additional questions.
--- NOTE | 2024-04-09 15:49 | P.PNAN_ITS ---
Anes - Eval Pre Procedure Procedure: Operation Date: 04/10/24 14:00 Proposed Procedures p Hysteroscopy Dilation and Curettage - Mary Sen MD Date/Time: 04/09/24 15:49 Pre Op Diagnosis: post menopausal bleeding Patient Data Age: 49 Gender: F Height: 1.63 m Weight: 76.4 kg Allergies Allergy/AdvReac Type Severity Reaction Status Date / Time No Known Allergies Allergy Verified 04/05/24 09:28 Home Medications Medication Instructions Recorded Confirmed Type hydrochlorothiazide 25 mg tablet 25 mg PO DAILY 08/01/19 04/05/24 History retvzmdrxyup-Fy-tdov-minerals 27 1 tablet PO DAILY 08/01/19 04/05/24 History mg-0.4 mg tablet (One Daily Women's) cholecalciferol (vitamin D3) 50 100 mcg PO DAILY 05/15/21 04/05/24 History mcg (2,000 unit) capsule potassium chloride 20 mEq 20 meq PO DAILY 07/02/22 04/05/24 History tablet,extended release(part/cryst) (Klor-Con M) progesterone micronized 200 mg 200 mg PO QPM 07/02/22 04/05/24 History capsule Lactobacillus 40-Bifidobact 1 cap PO DAILY 04/05/24 04/05/24 History 3-S.thermophilus 100 billion cell capsule (Probiotic) biotin 10,000 mcg-keratin 100 mg 1 tablet PO DAILY 04/05/24 04/05/24 History tablet (Biotin Plus Keratin) cetirizine 10 mg tablet (Zyrtec) 10 mg PO DAILY 04/05/24 04/05/24 History thyroid (pork) 60 mg tablet (HVAC DESIGN MECHANICAL ENGINEER 60 mg PO DAILY 04/05/24 04/05/24 History Thyroid) Patient hx anesthesia problems: none Family hx anesthesia problems: none Results Review: All pre-operative results and documents have been reviewed as part of the pre- operative evaluation. [facility] Past Medical History Medical History Atopic dermatitis Fatigue TONY (generalized anxiety disorder) HLD (hyperlipidemia) Lumbar degenerative disc disease Surgical History Surgical History History of carpal tunnel repair [place] teeth removed Family History Family History Father Family history of lung cancer Social History Social History Smoking status: Never smoker Second hand tobacco smoke exposure: No Alcohol intake: current Drinks per week: 1 Alcohol use details: SOCIAL Substance use: never Substance use type: does not use Do You Feel Safe in your Home?: Yes Lack of Transportation: No Lack of Food: Never True Current Housing: I Do Not Have Housing Concerned About Future Housing: No Difficulty Paying Gas/Electric Bills: No Difficulty Paying for Meds: No Currently Unemployed: No Education: Associate Degree Difficulty w/ Childcare or Family Care: No Living arrangements: with family Occupation/Education: other 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 Gender identity (if verbalized by the patient): Female Spiritual care concerns: No Agree to blood products: Yes Exam Day of Procedure 04/09/24 15:49
--- NOTE | 2024-04-10 07:46 | WPDHPUPDATE1 ---
History and Physical Update Update Date/Time: 04/10/24 07:46 History and Physical has been reviewed, including an updated exam of the patient. There are NO changes in the patient's condition. Risks, benefits, and alternatives have been discussed and questions answered. Patient agrees to proceed with procedure.
--- NOTE | 2024-04-10 07:47 | P.HP_ITS ---
History of Present Illness History of Present Illness Consent: Risks, benefits, and alternatives have been discussed and questions answered. Patient agrees to proceed with procedure. Chief complaint: post menopausal bleeding Narrative: Mirlande Braswell is a 49 year old female with a 2 week episode of bleeding. She is 18 months postmenopausal. Pelvic ultrasound shows a thickened endometrium. It was recommended to undergo D&C hysteroscopy for further evaluat ion. Risks of infection, bleeding, perforation , and possible pathology are reviewed. Patient voices understanding and agrees to proceed. Review of Systems Review of Systems: not repeated day of surgery; patient states no changes in status [facility] Past Medical History Medical History (Updated 04/10/24 @ 07:49 by Mary Sen MD) Atopic dermatitis Attention deficit disorder TONY (generalized anxiety disorder) HLD (hyperlipidemia) Lumbar degenerative disc disease (normal spontaneous vaginal delivery) x2 Surgical History Surgical History (Updated 04/10/24 @ 07:49 by Mary Sen MD) History of ankle surgery History of carpal tunnel repair [place] teeth removed Family History Family History Father Family history of lung cancer Social History Social History Smoking status: Never smoker Second hand tobacco smoke exposure: No Alcohol intake: current Drinks per week: 1 Alcohol use details: SOCIAL Substance use: never Substance use type: does not use Do You Feel Safe in your Home?: Yes Lack of Transportation: No Lack of Food: Never True Current Housing: I Do Not Have Housing Concerned About Future Housing: No Difficulty Paying Gas/Electric Bills: No Difficulty Paying for Meds: No Currently Unemployed: No Education: Associate Degree Difficulty w/ Childcare or Family Care: No Living arrangements: with family Occupation/Education: other 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 Gender identity (if verbalized by the patient): Female Spiritual care concerns: No Agree to blood products: Yes Meds Home Medications and Allergies Home Medications Medication Instructions Recorded Confirmed Type hydrochlorothiazide 25 mg tablet 25 mg PO DAILY 08/01/19 04/05/24 History gulwpnzllfuh-Yz-siss-minerals 27 1 tablet PO DAILY 08/01/19 04/05/24 History mg-0.4 mg tablet (One Daily Women's) cholecalciferol (vitamin D3) 50 100 mcg PO DAILY 05/15/21 04/05/24 History mcg (2,000 unit) capsule potassium chloride 20 mEq 20 meq PO DAILY 07/02/22 04/05/24 History tablet,extended release(part/cryst) (Klor-Con M) progesterone micronized 200 mg 200 mg PO QPM 07/02/22 04/05/24 History capsule Lactobacillus 40-Bifidobact 1 cap PO DAILY 04/05/24 04/05/24 History 3-S.thermophilus 100 billion cell capsule (Probiotic) biotin 10,000 mcg-keratin 100 mg 1 tablet PO DAILY 04/05/24 04/05/24 History tablet (Biotin Plus Keratin) cetirizine 10 mg tablet (Zyrtec) 10 mg PO DAILY 04/05/24 04/05/24 History thyroid (pork) 60 mg tablet (SPORTSPERSONS 60 mg PO DAILY 04/05/24 04/05/24 History Thyroid) Allergies Allergy/AdvReac Type Severity Reaction Status Date / Time No Known Allergies Allergy Verified 04/05/24 09:28 Exam Const: General: healthy appearing and alert Orientation/consciousness: patient oriented x3 Resp: Effort & Inspection: normal respiratory effort : External Female Exam: normal external appearance Speculum Exam - Vagina: normal appearance of the vagina and normal vaginal discharge Speculum Exam - Cervix: normal appearance of the cervix Bimanual exam- vagina & uterus: uterine size normal and consistency normal Bimanual Exam- Adnexa, other: normal adnexae and No adnexal tenderness Neuro: General: patient oriented x3 Assessment and Plan Assessment and plan (1) Post-menopausal bleeding: Code(s): N95.0 - Postmenopausal bleeding Status: Acute Assessment and Plan: plan to proceed with D&C hysteroscopy
--- NOTE | 2024-04-10 12:43 | P.PNAN_ITS ---
Anes - Initial Pre Proc Eval Procedure: Operation Date: 04/10/24 14:00 Proposed Procedures p Hysteroscopy Dilation and Curettage - Mary Sen MD Date/Time: 04/10/24 12:43 Surgeon: Mary Sen MD Pre Op Diagnosis: post menopausal bleeding Patient Data Age: 49 Gender: F Height: 1.63 m Weight: 76.4 kg Allergies Allergy/AdvReac Type Severity Reaction Status Date / Time No Known Allergies Allergy Verified 04/05/24 09:28 Home Medications Medication Instructions Recorded Confirmed Type hydrochlorothiazide 25 mg tablet 25 mg PO DAILY 08/01/19 04/05/24 History fptektjrsxrv-Qf-qssl-minerals 27 1 tablet PO DAILY 08/01/19 04/05/24 History mg-0.4 mg tablet (One Daily Women's) cholecalciferol (vitamin D3) 50 100 mcg PO DAILY 05/15/21 04/05/24 History mcg (2,000 unit) capsule potassium chloride 20 mEq 20 meq PO DAILY 07/02/22 04/05/24 History tablet,extended release(part/cryst) (Klor-Con M) progesterone micronized 200 mg 200 mg PO QPM 07/02/22 04/05/24 History capsule Lactobacillus 40-Bifidobact 1 cap PO DAILY 04/05/24 04/05/24 History 3-S.thermophilus 100 billion cell capsule (Probiotic) biotin 10,000 mcg-keratin 100 mg 1 tablet PO DAILY 04/05/24 04/05/24 History tablet (Biotin Plus Keratin) cetirizine 10 mg tablet (Zyrtec) 10 mg PO DAILY 04/05/24 04/05/24 History thyroid (pork) 60 mg tablet (GARDEN CONSULTANT 60 mg PO DAILY 04/05/24 04/05/24 History Thyroid) Patient hx anesthesia problems: none Family hx anesthesia problems: none Results Review: All pre-operative results and documents have been reviewed as part of the pre- operative evaluation. [facility] Past Medical History Medical History Atopic dermatitis Attention deficit disorder TONY (generalized anxiety disorder) HLD (hyperlipidemia) Lumbar degenerative disc disease (normal spontaneous vaginal delivery) x2 Surgical History Surgical History History of ankle surgery History of carpal tunnel repair [employer] teeth removed Family History Family History Father Family history of lung cancer Social History Social History Smoking status: Never smoker Second hand tobacco smoke exposure: No Alcohol intake: current Drinks per week: 1 Alcohol use details: SOCIAL Substance use: never Substance use type: does not use Do You Feel Safe in your Home?: Yes Lack of Transportation: No Lack of Food: Never True Current Housing: I Do Not Have Housing Concerned About Future Housing: No Difficulty Paying Gas/Electric Bills: No Difficulty Paying for Meds: No Currently Unemployed: No Education: Associate Degree Difficulty w/ Childcare or Family Care: No Living arrangements: with family Occupation/Education: other 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 Gender identity (if verbalized by the patient): Female Spiritual care concerns: No Agree to blood products: Yes Anes - Eval Final PreProcedure Day of Procedure 04/10/24 12:43 Patient weight: overweight Heart: regular rate and rhythm Lungs: clear to auscultation Airway: Mallampati scale class II Neurological: alert and oriented Last oral intake: >/= 8 hours ASA classification: II Emergent: no Anesthetic plan: proceed Anesthesia type and monitoring: general GIVS and standard monitoring Results Review: All pre-operative results and documents have been reviewed as part of the pre- operative evaluation. Informed Consent: The patient's anesthetic plan and its attendant risks and benefits were discussed with the patient/family/POA. Questions were solicited and answers provided to the satisfaction of the patient/family/POA.
[2024-04-10 12:45] VITALS: BP 115/58; PULSE 86; RESP 14; TEMP 36.3; O2SAT 100
[2024-04-10] MEDS: ACETAMINOPHEN 500 MG TABLET 1000 MG PO (12:45)
[2024-04-10] MEDS: LACTATED RINGERS 1,000 ML 30 ML IV CONT (12:45)
[2024-04-10 13:18] VITALS: BP 109/72; PULSE 82; RESP 14; O2SAT 98
--- NOTE | 2024-04-10 13:18 | W.PM.PROC2 ---
Procedure Note - Detailed Date of Procedure 04/10/24 Pre-op Diagnosis post menopausal bleeding Post-op Diagnosis Same Procedure Performed D&C hysteroscopy Surgeon Mary Sne MD Anesthesia MAC Findings uterus sounds to 8cm and appears grossly atrophic with no lesions Description of Procedure The patient is taken to the operating room and placed under anesthesia in the dorsal lithotomy position. She was prepped and draped in usual sterile fashion. [place] speculum was placed in the vagina and the cervix grasped on the anterior lip a tenaculum. The uterus is sounded to 8cm. The diagnostic hysteroscope was placed and with no abnormalities noted was removed. The sharp OO curette is used to curette the endometrium until a good uterine cry was noted in all areas. Minimal material was obtained consistent with the atrophic appearance. There was a copious amount of mucus. All instruments are removed. Patient was awakened from anesthesia and taken to recovery in stable condition. Sponge, needle, and instrument counts are correct per the OR staff. Estimated Blood Loss 5 Drains No Packing No Pathology Yes ( Endometrial curettings) Complications No immediate complications Condition Stable Disposition PACU
[2024-04-10 13:45] VITALS: BP 124/78; PULSE 72; O2SAT 100
[2024-04-10] MEDS: oxyCODONE HCL (*CRX) 5 MG TAB IR PO (14:05)
[2024-04-10 14:15] VITALS: BP 109/67; PULSE 68
[2024-04-10] MEDS: KETOROLAC 15 MG/ML VIAL (*BKC) IV PUSH (14:27)
[2024-04-10 14:45] VITALS: BP 125/77; PULSE 68
== END 2024-04-10 15:01 | disposition home or self-care (01) ==
PROVIDERS: PCP Family Medicine; Visit Provider Obstetrics & Gynecology Gynecology
PROC: 0U5B8ZZ Destruction of Endometrium, Via Natural or Artificial Opening Endoscopic (ICD-10-PCS; CPT 58563; principal; 2024-04-10 14:00)
DX: N85.8 Other specified noninflammatory disorders of uterus (principal); E78.5 Hyperlipidemia, unspecified; F41.9 Anxiety disorder, unspecified; L20.9 Atopic dermatitis, unspecified; F98.8 Other specified behavioral and emotional disorders with onset usually occurring in childhood and adolescence; M51.369 Other intervertebral disc degeneration, lumbar region without mention of lumbar back pain or lower extremity pain; Z79.899 Other long term (current) drug therapy; Z98.890 Other specified postprocedural states; Z80.1 Family history of malignant neoplasm of trachea, bronchus and lung
CPT/HCPCS: 58558; 88305; A9270; J1885; J2250; J2704; J3010; J7120

== ENCOUNTER 2024-06-27 11:26 | Outpatient (CLI) | payer OTHER, SELFPAY ==
[2024-07-01 20:03] LABS: Calprotectin, Stool 40 mcg/g
[2024-07-03 13:49] LABS: Pancreatic Elastase, Stool >800 mcg/g (>200)
== END 2024-06-27 11:27 | disposition home or self-care (01) ==
LOC: ANHLAB 11:27
PROVIDERS: PCP Family Medicine; Visit Provider Nurse Practitioner Family
DX: R11.2 Nausea with vomiting, unspecified (principal); R19.7 Diarrhea, unspecified
CPT/HCPCS: 82653; 83993

== ENCOUNTER 2024-08-09 00:30 | Day surgery (SDC) | payer OTHER, SELFPAY ==
[2024-07-28 08:24] VITALS: BMI 28.3
--- OUTSIDE RECORDS SUMMARY | 2024-08-09 00:35 | XMS_ITS | Clinical Summary ---
Author Organization [facility] [address] [place] [address] [place] [id number] Care Team Providers Care Central Supply Technician Supervisor Name Role Phone Cee Hawkins MD Primary Care Provider [phone] Allergies No known active allergies Medications multivitamin with minerals (ONE DAILY COMPLETE) tablet take 1 tablet by ORAL route every day with food 0 11/15/19 10 Active biotin 2,500 mcg capsule Take by mouth. Activ e Adderall XR 20 mg 24 hr capsule Take 1 capsule (20 mg total) by mouth daily 06/19/19 22 Active BinaxNOW COVID-19 Ag Self Test kit 09/26/19 23 Active CASH REGISTER MECHANIC Thyroid 90 mg tablet TAKE 1 TABLET BY MOUTH EVERY DAY 30 MINUTES BEFORE BREAKFAST 07/30/19 23 Active progesterone (PROMETRIUM) 200 mg capsule TAKE 1 CAPSULE BY MOUTH EVERY NIGHT AFTER DINNER 02/26/20 23 Active cholestyramine (QUESTRAN) 4 gram powder TAKE 4G WITH LIQUID AND DRINK BY MOUTH EVERY DAY WITH A MEAL. AVOID OTHER MEDS WITHIN 1 HOURS BEFORE OR 4 - 6 HOURS AFTER 06/06/20 24 Active omeprazole (PriLOSEC) 40 mg capsule 06/26/19 25 Active ondansetron ODT (ZOFRAN-ODT) 8 mg disintegrating tablet 06/06/20 24 Active CASH REGISTER MECHANIC Thyroid 60 mg tablet TAKE 1 TABLET BY MOUTH 30 MINUTES BEFORE BREAKFAST EVERY DAY 06/12/20 24 Active tirzepatide, weight loss, (Zepbound) 2.5 mg/0.5 mL solution vial Inject 0.5 mL (2.5 mg total) under the skin every 7 days This medication record is used for ordering a prescription for Zoë Direct Humphrey 2 mL 2 07/25/19 25 Active hydroCHLOROthiazid e (HYDRODIURIL) 25 mg tablet Take 1 tablet (25 mg total) by mouth daily 90 tablet 3 07/25/19 25 Active potassium chloride ER (KLOR-CON) 10 mEq CR tabletIndications: Insulin resistance Take 2 tablet/capsule (20 mEq total) by mouth daily 180 tablet 2 07/25/19 25 Active aspirin (ASPIRIN LOW DOSE) 81 mg tablet take 1 tablet by oral route every day 0 0 05/23/20 13 025 Discontin ued(Other ) citalopram (CeleXA) 20 mg tablet 02/29/20 20 025 Discontin ued(Other ) diclofenac DR (VOLTAREN) 75 mg EC tablet Take 1 tablet (75 mg total) by mouth every 12 (twelve) hours 02/26/20 23 025 Discontin ued(Other ) dicyclomine (BENTYL) 10 mg capsule TAKE 2 CAPSULES BY MOUTH FOUR TIMES DAILY NEEDED FOR ABDOMINAL CRAMPS 12/30/19 24 025 Discontin ued(Other ) semaglutide 0.25 mg or 0.5 mg (2 mg/3 mL) pen injector injection Inject 0.5 mg under the skin every 7 days 3 mL 3 01/05/20 24 025 Discontin ued(Other ) hydroCHLOROthiazid e (HYDRODIURIL) 25 mg tablet Take 1 tablet (25 mg total) by mouth daily 90 tablet 3 01/05/20 24 025 Discontin ued(Reord er) potassium chloride ER (KLOR-CON) 10 mEq CR tabletIndications: Insulin resistance Take 2 tablet/capsule (20 mEq total) by mouth daily 60 tablet 2 06/27/19 25 025 Discontin ued(Reord er) Active Problems Problem Noted Date Diagnosed Date Diuretic-induced hypokalemia 09/29/2022 Assessment & Plan (01/05/2024 4:22 PM CDT): Continue potassium supplementation Assessment & Plan (05/31/2023 3:09 PM TRIGONOMETRY TUTOR): Continue potassium supplementation Assessment & Plan (09/29/2022 1:28 PM CDT): Update maria victoria Cotto Continue KCL Class 1 obesity due to exces s calories with serious comorbidity in adult 06/24/2021 Assessment & Plan (06/24/2021 2:47 PM TRIGONOMETRY TUTOR): Diet and exercise With a component of insulin resistance Will; try Ozempic Insulin resistance 06/24/2021 Assessment & Plan (01/05/2024 4:21 PM CDT): Will try to restart Ozempic Prescription sent Samples also provided Assessment & Plan (05/31/2023 3:09 PM TRIGONOMETRY TUTOR): Continue working on diet and exercise Provided the patient with samples from Ozempic The prescription was also sent to the pharmacy. 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 Assessment & Plan (01/05/2024 4:21 PM CDT): Continue hydrochlorothiazide 25 mg daily Assessment & Plan (05/31/2023 3:09 PM TRIGONOMETRY TUTOR): Continue with hydrochlorothiazide Assessment & Plan (09/29/2022 1:26 PM CDT): Check serum Ca Continue HCTZ Assessment & Plan (09/30/2021 3:53 PM CDT): Continue HCTZ Check BMP, calciuria Will get report of DEXA today Assessment & Plan (06/24/2021 2:46 PM TRIGONOMETRY TUTOR): Continue HCTZ Check calciuria Check DEXA Assessment & Plan (03/05/2020 10:56 AM CDT): continue HCTZ Assessment & Plan (07/11/2019 12:32 PM TRIGONOMETRY TUTOR): Continue HCTZ Assessment & Plan (03/21/2019 2:53 PM CDT): Check calciuria Continue HCTZ Assessment & Plan (01/25/2018 4:08 PM CDT): Continue HCTZ Check BMP Assessment & Plan (03/30/2017 3:12 PM CDT): Continue HCTZ Weight gain 11/24/2016 Assessment & Plan (03/05/2020 10:56 AM CDT): Restart phentermine Diet and exercise discussed and recommended WW recommended, to track calories. Assessment & Plan (07/11/2019 12:33 PM TRIGONOMETRY TUTOR): Pt working hard ondiet and exercise D/c Depade Will try Phentermine Pt to track calories with MyPal gregg . Assessment & Plan (11/24/2016 9:32 AM CDT): 1500 dimitris diet Low carb Daily exercise, 45-60 min Check TFT's Calcium disorder 05/24/2012 Overview (09/18/2016): DIS CALCIUM METABLSM NOS Resolved Problems Problem Noted Date Diagnosed Date Resolved Date Osteopenia of multiple sites 01/25/2018 07/11/2019 Assessment & Plan (01/25/2018 4:09 PM CDT): DEXA requested BMI 30.0-30.9,adult 03/30/2017 07/11/19 20 Assessment & Plan (03/21/2019 2:52 PM CDT): Weight and exercise discussed Start naltrexone Assessment & Plan (01/25/2018 4:08 PM CDT): Obesity is unchanged. Discussed the patient's BMI. The BMI is above average; BMI management plan is completed. General weight loss/lifestyle modification strategies discussed (elicit support from others; identify saboteurs; non-food rewards, etc). Start Contrave Assessment & Plan (03/30/2017 3:12 PM CDT): Continue working on diet and exercise Continue Phentermine Encounters Date Type Department Care Team Description 07/25/2024 2:55 PM TRIGONOMETRY TUTOR Lab [address] [id number] Hypercalciuria, idiopathic 07/25/2024 1:45 PM TRIGONOMETRY TUTOR Office Visit [facility] [address] [phone] Piyush Lugo MD Hypercalciuria, idiopathic (Primary Dx); Insulin resistance 06/15/2024 Telephone [facility] [address] [phone] Piyush Lugo MD 06/12/2024 Telephone [facility] [address] [address] Piyush Lugo MD from Last 3 Months Immunizations Immunization Administration Dates Next Due Influenza, Quadrivalent, Lia l Culture-based MDCK, Preservative Free, Antibiotic Free, Intramuscular 04/03/2018 Moderna SARS-CoV-2 Monovalent Vaccination (12+ Y RS) 06/20/2021 Tdap 04/04/2018,04/03/2018 Medical History Medical History Date Comments Hx Other Medical Fracture left f emur Anxiety disorder Anxiety Strep throat 09/21/2022 Covid-19 07/27/2022 Family History Medical History Relation Name Comments Other Other 1 No family histo ry of Diabetes mellitus; Osteoporosis Other 2 Family history of Osteoporosis; Other Other 3 No family histo ry of Thyroid disorder; Relation Name Status Comments Other 1 Other 2 Other 3 Social History Tobacco Use Types Packs/Day Years Used Date Smoking Tobacco: Never Smokeless Tobacco: Never Tobacco Cessation:Counseling Given: Not Answered Alcohol Use Standard Drinks/Week Comments Yes 0 (1 standard drink = 0.6 oz pur e alcohol) AUDIT-C Answer Date Recorded Q1: How often do you have a drink containing alcohol? Never 01/05/2024 Q2: How many drinks containi ng alcohol do you have on a typical day when you are drinking? Patient does not drink Q3: How often do you have si x or more drinks on one occasion? Never 01/05/2024 PHQ-2 Answer Date Recorded PHQ-2 Total Score (If total score is 3 or more points, staff should administer the PHQ-9) 0 01/05/2024 Comments Unknown Sex and Gender Information Value Date Recorded Sex Assigned at Not on file Legal Sex Female 10:47 AM TRIGONOMETRY TUTOR Gender Identity Not on file Sexual Orientation Not on file Obstetrics History Last Filed Vital Signs Vital Sign Reading Time Taken Comments Blood Pressure 102/60 07/25/2024 2:06 PM TRIGONOMETRY TUTOR Pulse 93 07/25/2024 2:06 PM TRIGONOMETRY TUTOR Temperature - - Respiratory Rate 20 07/25/2024 2:0 6 PM TRIGONOMETRY TUTOR Oxygen Saturation - - Inhaled Oxygen Concentration - - Weight 72.5 kg (159 lb 12.8 oz) 07/25/2024 2:06 PM TRIGONOMETRY TUTOR Height 160 cm (5' 3 ) 07/25/2024 2:06 PM TRIGONOMETRY TUTOR Body Mass Index 28.31 07/25/2024 2:06 PM TRIGONOMETRY TUTOR Plan of Treatment Health Maintenance Due Date Last Done Comments Breast Cancer Screening-Mammogram 1973 Cervical Cancer Screening 1973 Colon Cancer Screening-Colonoscopy 1973 Hepatitis C Screening 1973 Hepatitis B Screening 1991 Regular Well Visit/Exam 18-64 1991 Zoster Vaccine (1 of 2) 2023 Covid-19 Vaccine (2 - season) 2024 06/20/2021 Influenza Vaccine (#1) 2024 04/03/2018 Depression Screening 01/04/2025 01/05/2024, 09/30/2021, 03/05/2020, Additional history exists DTaP/Tdap/Td Vaccine (3 - Td or Tdap) 04/04/2028 04/04/2018, 04/03/2018 Pneumococcal vaccine <65 Aged Out No longer eligible based on patient's age to complete this topic Procedures Procedure Name Priority Date/Time Associated Diagnosis Comments VITAMIN D 25 HYDROXY Routine 07/25/2024 2:53 PM TRIGONOMETRY TUTOR Hypercalciuria, idiopathic from Last 3 Months Results * Vitamin D 25 hydroxy (07/25/2024 2:53 PM TRIGONOMETRY TUTOR) Vitamin D 25-OH 69 30 - 80 ng/mL Blood 07/25/2024 2:53 PM TRIGONOMETRY TUTOR 07/25/2024 5:50 PM TRIGONOMETRY TUTOR us Piyush Lugo MD LAB BLOOD ORDERABLES Final Resul t [id number] [id number] [address] Department [place] [address] from Last 3 Months Insurance [employer] OPEN ACCESS [employer] ACC[employer] Care Teams Central Supply Technician Supervisor Relationship Specialty Start Date End Date Cee Hawkins MD PCP - General Family Medicine 09/04/21
--- OUTSIDE RECORDS SUMMARY | 2024-08-09 00:35 | XMS_ITS | Referral Summary ---
Author Organization [address] Address [address] [place] [id number] Care Team Providers Care Cyber Security Systems Engineer Name Role Phone Cee Hawkins MD Primary Care Provider [phone] Encounters Date Type Department Care Team Description 07/25/2024 2:55 PM [facility] [address] [address] Hypercalciuria, idiopathic 07/25/2024 1:45 PM BAGEL MAKER Office Visit [facility] [address] [address] Piyush Lugo MD Hypercalciuria, idiopathic (Primary Dx); Insulin resistance 06/15/2024 Telephone [facility] [address] [address] Piyush Lugo MD 06/12/2024 Telephone [facility] [address] [address] Piyush Lugo MD from Last 3 Months Allergies No known active allergies Medications multivitamin [...] Ag Self Test kit 09/26/19 23 Active DISTRICT EXTENSION SERVICE AGENT Thyroid 90 mg tablet TAKE 1 TABLET [...] 8 mg disintegrating tablet 06/06/20 24 Active DISTRICT EXTENSION SERVICE AGENT Thyroid 60 mg tablet TAKE 1 TABLET BY MOUTH 30 MINUTES BEFORE BREAKFAST EVERY DAY 06/12/20 24 Active tirzepatide, weight loss, (Zepbound) 2.5 mg/0.5 mL solution vial Inject 0.5 mL (2.5 mg total) under the skin every 7 days This medication record is used for ordering a prescription for Unified Color 2 mL 2 07/25/19 25 Active hydroCHLOROthiazid [...] by mouth daily 60 tablet 2 06/27/19 025 Discontin ued(Reord er) Active Problems Problem Noted Date Diagnosed Date Diuretic-induced hypokalemia 09/29/2022 Assessment & Plan (01/05/2024 4:22 PM CDT): Continue potassium supplementation Assessment & Plan (05/31/2023 3:09 PM BAGEL MAKER): Continue potassium supplementation Assessment & Plan (09/29/2022 1:28 PM CDT): Update seum K Continue KCL Class 1 obesity due to exces s calories with serious comorbidity in adult 06/24/2021 Assessment & Plan (06/24/2021 2:47 PM BAGEL MAKER): Diet and exercise With a component of insulin resistance Will; try Ozempic Insulin resistance 06/24/2021 Assessment & Plan (01/05/2024 4:21 PM CDT): Will try to restart Ozempic Prescription sent Samples also provided Assessment & Plan (05/31/2023 3:09 PM BAGEL MAKER): Continue working on diet and exercise Provided [...] mg Assessment & Plan (06/24/2021 2:48 PM BAGEL MAKER): Diet and exercise Try Ozempic Hypercalciuria, 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 Assessment & Plan (01/05/2024 4:21 PM CDT): Continue hydrochlorothiazide 25 mg daily Assessment & Plan (05/31/2023 3:09 PM BAGEL MAKER): Continue with hydrochlorothiazide Assessment & Plan (09/29/2022 1:26 PM CDT): Check serum Ca Continue HCTZ Assessment & Plan (09/30/2021 3:53 PM CDT): Continue HCTZ Check BMP, calciuria Will get report of DEXA today Assessment & Plan (06/24/2021 2:46 PM BAGEL MAKER): Continue HCTZ Check calciuria Check DEXA Assessment & Plan (03/05/2020 10:56 AM CDT): continue HCTZ Assessment & Plan (07/11/2019 12:32 PM BAGEL MAKER): Continue HCTZ Assessment & Plan (03/21/2019 2:53 PM CDT): Check calciuria Continue HCTZ Assessment & Plan (01/25/2018 4:08 PM CDT): Continue HCTZ Check BMP Assessment & Plan (03/30/2017 3:12 PM CDT): Continue HCTZ Weight gain 11/24/2016 Assessment & Plan (03/05/2020 10:56 AM CDT): Restart phentermine Diet and exercise discussed and recommended WW recommended, to track calories. Assessment & Plan (07/11/2019 12:33 PM BAGEL MAKER): Pt working hard ondiet and exercise D/c [...] working on diet and exercise Continue Phentermine Immunizations Immunization Administration Dates Next Due Influenza, Quadrivalent, Lia l Culture-based MDCK, Preservative Free, Antibiotic Free, Intramuscular 04/03/2018 Moderna SARS-CoV-2 Monovalent Vaccination (12+ Y RS) 06/20/2021 Tdap 04/04/2018,04/03/2018 Social History Tobacco Use Types Packs/Day Years [...] on file Legal Sex Female 10:47 AM BAGEL MAKER Gender Identity Not on file Sexual Orientation Not on file Last Filed Vital Signs Vital Sign Reading Time Taken Comments Blood Pressure 102/60 07/25/2024 2:06 PM BAGEL MAKER Pulse 93 07/25/2024 2:06 PM BAGEL MAKER Temperature - - Respiratory Rate 20 07/25/2024 2:06 PM BAGEL MAKER Oxygen Saturation - - Inhaled Oxygen Concentration - - Weight 72.5 kg (159 lb 12.8 oz) 07/25/2024 2:06 PM BAGEL MAKER Height 160 cm (5' 3 ) 07/25/2024 2:06 PM BAGEL MAKER Body Mass Index 28.31 07/25/2024 2:06 PM BAGEL MAKER Plan of Treatment Not on file Procedures Procedure Name Priority Date/Time Associated Diagnosis Comments VITAMIN D 25 HYDROXY Routine 07/25/2024 2:53 PM BAGEL MAKER Hypercalciuria, idiopathic from Last 3 Months Results * Vitamin D 25 hydroxy (07/25/2024 2:53 PM BAGEL MAKER) Vitamin D 25-OH 69 30 - 80 ng/mL Blood 07/25/2024 2:53 PM BAGEL MAKER 07/25/2024 5:50 PM BAGEL MAKER us Piyush Lugo MD LAB BLOOD ORDERABLES Final Resul t [id number] Department [place] [address] from Last 3 Months Insurance [facility] OPEN ACCESS CIG OPEN ACCESS Care Teams Cyber Security Systems Engineer Relationship Specialty Start Date End Date Cee Hawkins MD PCP - General Family Medicine 09/04/21
[2024-08-09 11:20] VITALS: BP 92/53; PULSE 72; RESP 20; TEMP 36.6; O2SAT 100
[2024-08-09] MEDS: LACTATED RINGERS 1,000 ML 150 ML IV CONT (11:33)
--- NOTE | 2024-08-09 12:08 | WPDANESEPPF ---
Anes - Initial Pre Proc Eval Procedure: Operation Date: 08/09/24 12:30 Proposed Procedures p Esophagogastroduodenoscopy - Stephan Horvath MD Date/Time: 08/09/24 12:08 Surgeon: Stephan Horvath MD Pre Op Diagnosis: Nausea,abd pain, colitis Patient Data Age: 49 Gender: F Height: 1.6 m Weight: 73.6 kg Last Vital Signs Temp 98 F 08/09/24 11:20 Pulse 72 08/09/24 11:20 Resp 20 08/09/24 11:20 BP 92/53 L 08/09/24 11:20 Pulse Ox 100 08/09/24 11:20 O2 Del Method Room Air 08/09/24 11:20 Allergies Allergy/AdvReac Type Severity Reaction Status Date / Time No Known Allergies Allergy Verified 08/09/24 11:18 Home Medications ?Medication ?Instructions ?Recorded ?Confirmed ?Type hydrochlorothiazide 25 mg tablet 25 mg PO DAILY 08/01/19 08/09/24 History fsydvtehmnkm-Sm-udye-minerals 27 1 tablet PO DAILY 08/01/19 08/09/24 History mg-0.4 mg tablet (One Daily Women's) potassium chloride 20 mEq 20 meq PO DAILY 07/02/22 08/09/24 History tablet,extended release(part/cryst) (Klor-Con M) progesterone micronized 200 mg 200 mg PO QPM 07/02/22 08/09/24 History capsule Lactobacillus 40-Bifidobact 1 cap PO DAILY 04/05/24 08/09/24 History 3-S.thermophilus 100 billion cell capsule (Probiotic) biotin 10,000 mcg-keratin 100 mg 1 tablet PO DAILY 04/05/24 08/09/24 History tablet (Biotin Plus Keratin) cetirizine 10 mg tablet (Zyrtec) 10 mg PO DAILY 04/05/24 08/09/24 History thyroid (pork) 60 mg tablet (BUILDING COMPONENTS DESIGNER 60 mg PO DAILY 04/05/24 08/09/24 History Thyroid) dicyclomine 10 mg capsule 10 mg PO QID #120 caps 06/26/24 07/28/24 Rx omeprazole 40 mg capsule,delayed 40 mg PO DAILY #30 caps 06/26/24 08/09/24 Rx release ondansetron 8 mg disintegrating 8 mg PO Q8H PRN nausea and 06/27/24 07/28/24 Rx tablet vomiting #30 tabs dextroamphetamine-amphetamine ER 20 mg PO DAILY PRN FOCUS #30 caps 07/21/24 07/28/24 Rx 20 mg 24hr capsule,extend release (Adderall XR) Patient hx anesthesia problems: none Family hx anesthesia problems: none Results Review: All pre-operative results and documents have been reviewed as part of the pre-operative evaluation. [facility] Past Medical History Medical History (normal spontaneous vaginal delivery) x2 Attention deficit disorder Atopic dermatitis Lumbar degenerative disc disease HLD (hyperlipidemia) TONY (generalized anxiety disorder) Surgical History Surgical History History of ankle surgery History of carpal tunnel repair [place] teeth removed Family History Family History Father Family history of lung cancer Social History Social History Smoking status: Never smoker Second hand tobacco smoke exposure: No Alcohol intake: current Drinks per week: 1 Alcohol use details: SOCIAL Substance use: never Substance use type: does not use Do You Feel Safe in your Home?: Yes Lack of Transportation: No Lack of Food: Never True Current Housing: I Do Not Have Housing Concerned About Future Housing: No Difficulty Paying Gas/Electric Bills: No Difficulty Paying for Meds: No Currently Unemployed: No Education: Associate Degree Difficulty w/ Childcare or Family Care: No Living arrangements: with family Occupation/Education: other 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 Gender identity (if verbalized by the patient): Female Spiritual care concerns: No Agree to blood products: Yes Anes - Eval Final PreProcedure Day of Procedure 08/09/24 12:08 Patient weight: normal Lungs: normal air movement Airway: Mallampati scale class II Neurological: alert and oriented Last oral intake: >/= 8 hours ASA classification: I Emergent: no Anesthetic plan: proceed Anesthesia type and monitoring: general GIVS and standard monitoring Results Review: All pre-operative results and documents have been reviewed as part of the pre-operative evaluation. Pt very active, walked at gym this am, no cp or sob w activity. EGD for occ N/V. Informed Consent: The patient's anesthetic plan and its attendant risks and benefits were discussed with the patient/family/POA. Questions were solicited and answers provided to the satisfaction of the patient/family/POA.
--- NOTE | 2024-08-09 12:56 | PM.IMHP ---
H&P: HPI History of Present Illness Date/Time: 08/09/24 12:56 Chief Complaint: Abdominal pain Narrative: the patient is referred for endoscopy. She was complaining of intermittent sharp epigastric pain, not necessarily related to meals. Review of Systems Review of Systems: All systems reviewed & are unremarkable except as noted in HPI and below PMFSH Past Medical History Medical History (normal spontaneous vaginal delivery) x2 Attention deficit disorder Atopic dermatitis Lumbar degenerative disc disease HLD (hyperlipidemia) TONY (generalized anxiety disorder) Surgical History Surgical History History of ankle surgery History of carpal tunnel repair [place] teeth removed Family History Family History Father Family history of lung cancer Social History Social History Smoking status: Never smoker Second hand tobacco smoke exposure: No Alcohol intake: current Drinks per week: 1 Alcohol use details: SOCIAL Substance use: never Substance use type: does not use Do You Feel Safe in your Home?: Yes Lack of Transportation: No Lack of Food: Never True Current Housing: I Do Not Have Housing Concerned About Future Housing: No Difficulty Paying Gas/Electric Bills: No Difficulty Paying for Meds: No Currently Unemployed: No Education: Associate Degree Difficulty w/ Childcare or Family Care: No Living arrangements: with family Occupation/Education: other 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 Gender identity (if verbalized by the patient): Female Spiritual care concerns: No Agree to blood products: Yes Meds Home Medications and Allergies Home Medications ?Medication ?Instructions ?Recorded ?Confirmed ?Type hydrochlorothiazide 25 mg tablet 25 mg PO DAILY 08/01/19 08/09/24 History omkbugtdcynl-Xu-qmil-minerals 27 1 tablet PO DAILY 08/01/19 08/09/24 History mg-0.4 mg tablet (One Daily Women's) potassium chloride 20 mEq 20 meq PO DAILY 07/02/22 08/09/24 History tablet,extended release(part/cryst) (Klor-Con M) progesterone micronized 200 mg 200 mg PO QPM 07/02/22 08/09/24 History capsule Lactobacillus 40-Bifidobact 1 cap PO DAILY 04/05/24 08/09/24 History 3-S.thermophilus 100 billion cell capsule (Probiotic) biotin 10,000 mcg-keratin 100 mg 1 tablet PO DAILY 04/05/24 08/09/24 History tablet (Biotin Plus Keratin) cetirizine 10 mg tablet (Zyrtec) 10 mg PO DAILY 04/05/24 08/09/24 History thyroid (pork) 60 mg tablet (PARK MAINTENANCE TECHNICIAN 60 mg PO DAILY 04/05/24 08/09/24 History Thyroid) dicyclomine 10 mg capsule 10 mg PO QID #120 caps 06/26/24 07/28/24 Rx omeprazole 40 mg capsule,delayed 40 mg PO DAILY #30 caps 06/26/24 08/09/24 Rx release ondansetron 8 mg disintegrating 8 mg PO Q8H PRN nausea and 06/27/24 07/28/24 Rx tablet vomiting #30 tabs dextroamphetamine-amphetamine ER 20 mg PO DAILY PRN FOCUS #30 caps 07/21/24 07/28/24 Rx 20 mg 24hr capsule,extend release (Adderall XR) Allergies Allergy/AdvReac Type Severity Reaction Status Date / Time No Known Allergies Allergy Verified 08/09/24 11:18 Vital Signs Vital Signs - 24 hr 08/09/24 11:20 Temperature 98 F Pulse Rate 72 Respiratory Rate 20 Blood Pressure 92/53 L Pulse Oximetry 100 Oxygen Delivery Room Air Exam Const: General: cooperative and healthy appearing Resp: Effort & Inspection: normal respiratory effort and able to speak in complete sentences Auscultation: clear to auscultation bilaterally Cardio: Rate: regular rate Rhythm: regular rhythm GI: Inspection: normal to inspection GI Palp: No No hepatosplenomegaly present Auscultation: normal bowel sounds Rectal Exam: deferred Skin: General skin exam: normal color Psych: Appearance: grossly normal Mental Status: mental status grossly normal Assessment and Plan Assessment and plan (1) Abdominal pain: Qualifiers: Abdominal location: lower abdomen, unspecified Qualified Code(s): R10.30 - Lower abdominal pain, unspecified Code(s): R10.9 - Unspecified abdominal pain Status: Acute Assessment and Plan: Patient with recurrent, chronic nonspecific epigastric pain. Differential diagnosis includes peptic ulcer disease, H pylori related pathology or, most likely functional abdominal pain / dyspepsia. The patient is deemed a good candidate for the procedure. Consent signed. Will proceed.
[2024-08-09 13:07] LABS: BEDSIDEPREGUCG Negative (Negative)
[2024-08-09 13:11] VITALS: BP 100/60; PULSE 75; RESP 20; O2SAT 100
[2024-08-09 13:21] VITALS: BP 102/56; PULSE 73; RESP 14; O2SAT 100
[2024-08-09 13:31] VITALS: BP 95/61; PULSE 67; RESP 18; O2SAT 100
== END 2024-08-09 13:42 | disposition home or self-care (01) ==
PROVIDERS: PCP Family Medicine; Referring Provider Nurse Practitioner Family; Visit Provider Internal Medicine Gastroenterology
PROC: 0DJ08ZZ Inspection of Upper Intestinal Tract, Via Natural or Artificial Opening Endoscopic (ICD-10-PCS; CPT 43239; principal; 2024-08-09 12:30)
DX: K21.9 Gastro-esophageal reflux disease without esophagitis (principal); E78.5 Hyperlipidemia, unspecified; F41.9 Anxiety disorder, unspecified; M51.369 Other intervertebral disc degeneration, lumbar region without mention of lumbar back pain or lower extremity pain; F98.8 Other specified behavioral and emotional disorders with onset usually occurring in childhood and adolescence; L20.9 Atopic dermatitis, unspecified; Z98.890 Other specified postprocedural states; Z80.1 Family history of malignant neoplasm of trachea, bronchus and lung
CPT/HCPCS: 43239; 88305; J2704; J7120

== ENCOUNTER 2025-01-24 13:48 | Outpatient (CLI) | payer OTHER, SELFPAY ==
--- NOTE | ~2025-01-24 | MM_ITS ---
EXAMINATION: MM screening [facility]eron BI w [facility] HISTORY: Screening TECHNIQUE: Craniocaudal and mediolateral oblique 3-D tomosynthesis images were obtained and synthetic 2-D images were generated. CAD analysis was submitted and interpreted. COMPARISON: Comparison to multiple prior studies sequentially, with oldest reviewed study dated 03/14. BREAST PARENCHYMAL COMPOSITION: Dense: The breasts are extremely dense, which lowers the sensitivity of mammography. FINDINGS: There is no evidence of suspicious mass, calcification, or architectural distortion to sugg est malignancy in either breast. There has been no suspicious interval change. IMPRESSION: 1. No mammographic evidence of malignancy. 2. Recommend routine screening mammography in one year. BI-RADS Category 1: Negative Reviewed, dictated and finalized at location A.
--- OUTSIDE RECORDS SUMMARY | 2025-01-24 13:55 | XMS_ITS | Clinical Summary ---
Author Organization [facility] [address] [place] [address] [place] [address] Care Team Providers Care Director Of Marketing Operations Name Role Phone Cee Hawkins MD Primary Care Provider [phone] Allergies No known active allergies Medications multivitamin [...] Ag Self Test kit 09/26/19 23 Active PROPERTY WORKER Thyroid 90 mg tablet TAKE 1 TABLET [...] 8 mg disintegrating tablet 06/06/20 24 Active PROPERTY WORKER Thyroid 60 mg tablet TAKE 1 TABLET BY MOUTH 30 MINUTES BEFORE BREAKFAST EVERY DAY 06/12/20 24 Active hydroCHLOROthiazid e (HYDRODIURIL) 25 mg tablet TAKE 1 TABLET(25 MG) BY MOUTH DAILY 90 tablet 3 09/12/19 25 Active potassium chloride ER (KLOR-CON) 10 mEq CR tabletIndications: Insulin resistance Take 2 tablet/capsule (20 mEq total) by mouth daily 180 tablet 2 09/26/19 25 Active tirzepatide, weight loss, (ZEPBOUND) 7.5 mg/0.5 mL solution vialIndications:Cl ass 1 obesity due to excess calories with serious comorbidity and body mass index (BMI) of 33.0 to 33.9 in adult Inject 0.5 mL (7.5 mg total) under the skin every 7 days 2 mL 1 01/18/20 25 Active tirzepatide, weight loss, (Zepbound) 2.5 mg/0.5 mL solution vial Inject 0.5 mL (2.5 mg total) under the skin every 7 days This medication record is used for ordering a prescription for Zoë Direct Humphrey 2 mL 2 11/29/19 25 025 Discontin ued(Thera py completed ) Active Problems Problem Noted Date Diagnosed Date Diuretic-induced hypokalemia 09/29/2022 Assessment & Plan (01/05/2024 4:22 PM CDT): Continue potassium supplementation Assessment & Plan (05/31/2023 3:09 PM HAND MOLDER AND CASTER): Continue potassium supplementation Assessment & Plan (09/29/2022 1:28 PM CDT): Update seum K Continue KCL Class 1 obesity due to exces s calories with serious comorbidity in adult 06/24/2021 Assessment & Plan (06/24/2021 2:47 PM HAND MOLDER AND CASTER): Diet and exercise With a component of insulin resistance Will; try Ozempic Insulin resistance 06/24/2021 Assessment & Plan (01/05/2024 4:21 PM CDT): Will try to restart Ozempic Prescription sent Samples also provided Assessment & Plan (05/31/2023 3:09 PM HAND MOLDER AND CASTER): Continue working on diet and exercise Provided [...] mg Assessment & Plan (06/24/2021 2:48 PM HAND MOLDER AND CASTER): Diet and exercise Try Ozempic Hypercalciuria, 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 Assessment & Plan (01/05/2024 4:21 PM CDT): Continue hydrochlorothiazide 25 mg daily Assessment & Plan (05/31/2023 3:09 PM HAND MOLDER AND CASTER): Continue with hydrochlorothiazide Assessment & Plan (09/29/2022 1:26 PM CDT): Check serum Ca Continue HCTZ Assessment & Plan (09/30/2021 3:53 PM CDT): Continue HCTZ Check BMP, calciuria Will get report of DEXA today Assessment & Plan (06/24/2021 2:46 PM HAND MOLDER AND CASTER): Continue HCTZ Check calciuria Check DEXA Assessment & Plan (03/05/2020 10:56 AM CDT): continue HCTZ Assessment & Plan (07/11/2019 12:32 PM HAND MOLDER AND CASTER): Continue HCTZ Assessment & Plan (03/21/2019 2:53 PM CDT): Check calciuria Continue HCTZ Assessment & Plan (01/25/2018 4:08 PM CDT): Continue HCTZ Check BMP Assessment & Plan (03/30/2017 3:12 PM CDT): Continue HCTZ Weight gain 11/24/2016 Assessment & Plan (03/05/2020 10:56 AM CDT): Restart phentermine Diet and exercise discussed and recommended WW recommended, to track calories. Assessment & Plan (07/11/2019 12:33 PM HAND MOLDER AND CASTER): Pt working hard ondiet and exercise D/c [...] Encounters Date Type Department Care Team Description 11/14/2024 Telephone [facility] [address], [place] [address] Piyush Lugo MD PA Ozempic from Last 3 Months Immunizations Immunization Administration [...] on file Legal Sex Female 10:47 AM HAND MOLDER AND CASTER Gender Identity Not on file Sexual Orientation Not on file Obstetrics History Last Filed Vital Signs Vital Sign Reading Time Taken Comments Blood Pressure 102/60 07/25/2024 2:06 PM HAND MOLDER AND CASTER Pulse 93 07/25/2024 2:06 PM HAND MOLDER AND CASTER Temperature - - Respiratory Rate 20 07/25/2024 2:06 PM HAND MOLDER AND CASTER Oxygen Saturation - - Inhaled Oxygen Concentration - - Weight 72.5 kg (159 lb 12.8 oz) 07/25/2024 2:06 PM HAND MOLDER AND CASTER Height 160 cm (5' 3) 07/25/2024 2:06 PM HAND MOLDER AND CASTER Body Mass Index 28.31 07/25/2024 2:06 PM HAND MOLDER AND CASTER Plan of Treatment Health Maintenance Due Date Last Done Comments Breast Cancer Screening-Mammogram 1973 Cervical Cancer Screening 1973 Colon Cancer Screening-Colonoscopy 1973 Hepatitis C Screening 1973 Hepatitis B Screening 1991 Regular Well Visit/Exam 18-64 1991 Zoster Vaccine (1 of 2) 2023 Covid-19 Vaccine (2 - season) 2024 06/20/2021 Depression Screening 01/04/2025 01/05/2024, 09/30/2021, 03/05/2020, Additional history exists Influenza Vaccine (#1) 2025 04/03/2018 DTaP/Tdap/Td Vaccine (3 - Td or Tdap) 04/04/2028 04/04/2018, 04/03/2018 Pneumococcal vaccine <65 Aged Out No longer eligible based on patient's age to complete this topic Insurance [employer] OPEN ACCESS [employer] OPEN ACCESS Care Teams Director Of Marketing Operations Relationship Specialty Start Date End Date Cee Hawkins MD PCP - General Family Medicine 09/04/21
--- OUTSIDE RECORDS SUMMARY | 2025-01-24 13:55 | XMS_ITS | Patient Health Record ---
Author Organization [facility] Address [address] [place], [place] [id number] Care Team Providers Care Cover Cutter Name Role Phone TAZ RO Unavailable [phone] Cee Hawkins Unavailable Unavailable Reason For Referral No Information Medications Medication SIG (Take, Route, Frequency, Duration) Notes Start Date End Date Status Medrol Dosepak ORAL Medrol DosepakOr iginal MedicationMedrol Dosepak *Reorder from [employer] for eRx and Interaction Alerts* 08/04/2021 Active Plan Of Treatment No Information Insurance Providers Payer Name Payer Address Payer Phone Subscriber Number Group Number Insured Name Patient Relationship to Insured Coverage Start Date Coverage End Date [employer] [address] [place], [place] [id number] [phone] [id number] LANEY AGUILERA Self - patient is the insured
== END 2025-01-24 13:49 | disposition home or self-care (01) ==
LOC: ANHIMG 13:49
PROVIDERS: PCP Family Medicine; Visit Provider Nurse Practitioner
DX: Z12.31 Encounter for screening mammogram for malignant neoplasm of breast (principal)
CPT/HCPCS: 77063; 77067

== ENCOUNTER 2025-02-14 11:13 | Outpatient (CLI) | payer OTHER, SELFPAY ==
--- NOTE | ~2025-02-14 | US_ITS ---
EXAMINATION: US pelvic complete INDICATION: Right ovarian cyst Comparison:Ultrasound dated 03/20/2024 TECHNIQUE: Multiple transabdominal and endovaginal sonographic images of the pelvis performed. FINDINGS: The uterus measures 10.8 x 4.6 x 5.8 cm. The endometrial complex measures 5 mm. The right ovary measures 5.1 x 4.9 x 5.7 cm and the left ovary measures 2.1 x 2.7 x 1.3 cm. There are small follicles in each ovary. There are cysts of the right ovary, largest measuring 4.4 x 4.3 x 4 cm. This cyst is a simple cyst. There is a second smaller hypoechoic cyst with low-level internal echoes measuring 2.6 x 3.2 x 2.2 cm. Normal doppler signal in both ovaries. There is no free fluid in the pelvis. There are no abnormal masses seen on either side. IMPRESSION: 1. Right ovarian cysts, largest measuring 4.4 cm. Recommend follow-up ultrasound in 6-12 months. Reviewed, dictated and finalized at location O. IMPRESSION: 1. Right ovarian cysts, largest measuring 4.4 cm. Recommend follow-up ultrasoun d in 6-12 months.
== END 2025-02-14 11:14 | disposition home or self-care (01) ==
LOC: MICIMG 11:14
PROVIDERS: PCP Family Medicine; Visit Provider Obstetrics & Gynecology Gynecology
DX: N83.201 Unspecified ovarian cyst, right side (principal)
CPT/HCPCS: 76856

== ENCOUNTER 2025-02-20 20:30 | Emergency (ER) | payer OTHER, SELFPAY ==
--- NOTE | ~2025-02-20 | XR_ITS ---
XR foot LT min 3V 02/20/2025 21:16 INDICATION: Left foot pain after trauma PROCEDURE: 4 views left foot COMPARISON: No prior studies for comparison. FINDINGS: Fracture, dislocation or subluxation is not identified. There is moderate dorsal soft tissue swelling. No foreign bodies are identified. IMPRESSION: 1: NO ACUTE BONE OR JOINT ABNORMALITY IDENTIFIED. Reviewed, dictated and finalized at location O.
[2025-02-20 20:33] VITALS: BP 120/57; PULSE 86; RESP 16; TEMP 36.8; O2SAT 100
--- NOTE | 2025-02-20 21:11 | ED.LOWEXIN ---
HPI - Extremity Injury (Lower) General Chief Complaint: Extremity Injury, Lower Stated Complaint: foot injurr Time Seen by Provider: 02/20/25 20:32 History of Present Illness HPI Narrative: This is a 49-year-old female with history of hyperlipidemia generalized anxiety who presents to the ED for left foot pain. Patient states that she was lifting weights this morning when she dropped a 45 lb weight onto her left foot. She has been able walk on it since then but with significant pain. Denies numbness, tingling. Related Data Home Medications ?Medication ?Instructions ?Recorded ?Confirmed ?Last Taken ?Type hydrochlorothiazide 25 mg tablet 25 mg PO DAILY 08/01/19 11/28/24 08/08/24 History vragisutxfph-Ob-qcqs-minerals 27 1 tablet PO DAILY 08/01/19 11/28/24 08/08/24 History mg-0.4 mg tablet (One Daily Women's) potassium chloride 20 mEq 20 meq PO DAILY 07/02/22 11/28/24 08/08/24 History tablet,extended release(part/cryst) (Klor-Con M) progesterone micronized 200 mg 200 mg PO QPM 07/02/22 11/28/24 08/08/24 History capsule Lactobacillus 40-Bifidobact 1 cap PO DAILY 04/05/24 11/28/24 08/08/24 History 3-S.thermophilus 100 billion cell capsule (Probiotic) biotin 10,000 mcg-keratin 100 mg 1 tablet PO DAILY 04/05/24 11/28/24 08/08/24 History tablet (Biotin Plus Keratin) cetirizine 10 mg tablet (Zyrtec) 10 mg PO DAILY 04/05/24 11/28/24 08/08/24 History thyroid (pork) 60 mg tablet (RECONCILING CLERK 60 mg PO DAILY 04/05/24 11/28/24 08/08/24 History Thyroid) Allergies Allergy/AdvReac Type Severity Reaction Status Date / Time No Known Allergies Allergy Verified 02/20/25 20:30 Review of Systems Review of Systems: Gen.: Denies fevers or chills Eyes: Denies eye pain or visual change ENT: Denies congestion Respiratory: Denies shortness of breath or cough CV: Denies chest pain or palpitations GI: Denies abdominal pain nausea, emesis or diarrhea denies burning, urgency, frequency or hematuria Musculoskeletal: As per HPI Neuro: Denies numbness, tingling, weakness or focal weakness Skin: Denies rash Except as documented, all other systems reviewed and negative [facility] Past Medical History Medical History (normal spontaneous vaginal delivery) x2 Attention deficit disorder Atopic dermatitis Lumbar degenerative disc disease HLD (hyperlipidemia) TONY (generalized anxiety disorder) Surgical History Surgical History History of ankle surgery History of carpal tunnel repair [place] teeth removed Family History Family History Father Family history of lung cancer Social History Social History Smoking status: Never smoker Second hand tobacco smoke exposure: No Alcohol intake: current Drinks per week: 1 Alcohol use details: SOCIAL Substance use: never Substance use type: does not use Do You Feel Safe in your Home?: Yes Lack of Transportation: No Lack of Food: Never True Current Housing: I Do Not Have Housing Concerned About Future Housing: No Difficulty Paying Gas/Electric Bills: No Difficulty Paying for Meds: No Currently Unemployed: No Education: Associate Degree Difficulty w/ Childcare or Family Care: No Living arrangements: with family Occupation/Education: other 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 Gender identity (if verbalized by the patient): Female Spiritual care concerns: No Agree to blood products: Yes Exam Narrative: APPEARANCE: No acute distress, nontoxic, resting in bed HEENT: Normocephalic, atraumatic, OMM RESPIRATORY: No respiratory distress CARDIOVASCULAR: Appears well perfused ABDOMINAL: Nondistended MUSCULOSKELETAl: Tenderness palpation over the distal aspects of the left 2nd 3rd, 4th metatarsals with overlying swelling and ecchymosis. Pain to this area with passive flexion and extension of the 2nd through 4th digits. Neurovascularly intact distally. NEURO: Awake and alert. SKIN:: Warm, dry. No rashes lesions or abrasions PSYCHIATRIC: Normal affect/mood, Course Vital Signs Vital signs: Vital Signs Temperature 98.3 F 02/20/25 20:33 Pulse Rate 86 02/20/25 20:33 Respiratory Rate 16 02/20/25 20:33 Blood Pressure 120/57 L 02/20/25 20:33 Pulse Oximetry 100 02/20/25 20:33 Oxygen Delivery Room Air 02/20/25 20:33 Temperature 98.3 F 02/20/25 20:33 Pulse Rate 86 02/20/25 20:33 Respiratory Rate 16 02/20/25 20:33 Blood Pressure 120/57 L 02/20/25 20:33 Pulse Oximetry 100 02/20/25 20:33 Oxygen Delivery Room Air 02/20/25 20:33 MDM - Extremity Injury (Lower) MDM Narrative Medical decision making narrative: 49-year-old female presenting to the ED for foot pain after dropping a weight on it this morning. On initial evaluation, patient was in acute distress, afebrile, hemodynamically stable. She had at tenderness to palpation over the left 2nd through 4th metatarsals with significant swelling and ecchymosis. X-ray showed no evidence of fractures. Patient was given Reilly wrap. She came in with a scooter from a prior surgery and advised her to use this. She has a sweet dough mixer that she can follow up within next couple days who advised her to follow up with for possible walking boot and further evaluation. Patient was agreeable to this plan. Given strict return precautions. Differential Diagnosis Differential diagnosis: Likely other (Fracture, contusion) Medical Records Attestation: I reviewed the patient's medical records. Imaging Data Radiologist's impression: Impressions Foot X-Ray 02/20/25 21:20 IMPRESSION: 1: NO ACUTE BONE OR JOINT ABNORMALITY IDENTIFIED. Discharge Plan Discharge Clinical Impression: Contusion of foot Qualifiers: Encounter type: initial encounter Laterality: left Qualified Code(s): S90.32XA - Contusion of left foot, initial encounter Patient Disposition: Home Condition: Stable Instructions: Antibiotic Form, Foot Contusion (ED) Additional Instructions: Recommend rice therapy. Apply ice to the area 20 minutes on 20 minutes off. Keep the Reilly wrap in place to improve swelling. Keep elevated when not ambulating. He may take Tylenol ibuprofen the pain. Follow-up with your sweet dough mixer in the next couple days for re-evaluation and for possible walking boot. Return the ED for any new or worsening symptoms. For pain, discomfort or temperature greater than or equal to 100.8 ?F please alternate the following 2 medications as needed. First medication- acetaminophen/Tylenol- 1000mg every 6-8 hours as needed for above indications. Second medication- ibuprofen/Motrin-600mg every 6-8 hours as needed for above indication. Patient Language: Montenegrin Prescriptions: No Action dicyclomine 10 mg capsule 10 mg PO BID Qty: 60 3RF hydrochlorothiazide 25 mg tablet 25 mg PO DAILY One Daily Women's 27-0.4 mg tablet 1 tablet PO DAILY potassium chloride [Klor-Con M20] 20 mEq tablet,ER particles/crystals 20 meq PO DAILY progesterone micronized 200 mg capsule 200 mg PO QPM thyroid (pork) [RECONCILING CLERK Thyroid] 60 mg tablet 60 mg PO DAILY Biotin Plus Keratin 10,000-100 mcg-mg Tablet 1 tablet PO DAILY Probiotic 100 billion cell Capsule 1 cap PO DAILY cetirizine [Zyrtec] 10 mg Tablet 10 mg PO DAILY dextroamphetamine-amphetamine [Adderall XR] 20 mg capsule,extended release 24hr 20 mg PO DAILY PRN (Reason: FOCUS) Qty: 30 0RF omeprazole 40 mg capsule,delayed release(DR/EC) 40 mg PO DAILY Qty: 30 3RF Follow-up/Referrals: Cee Hawkins MD [Primary Care Provider, Family Practice]
[2025-02-20] MEDS: KETOROLAC 30 MG/ML VIAL (*BKC) IM (21:18)
--- OUTSIDE RECORDS SUMMARY | 2025-02-20 21:25 | XMS_ITS | Clinical Summary ---
Author Organization [facility] [address] [place] [address] [place] [id number] Care Team Providers Care Scientist Propagator Name Role Phone Cee Hawkins MD Primary Care Provider [phone] Allergies No known active allergies Medications multivitamin with minerals (ONE DAILY COMPLETE) tablet take 1 tablet by ORAL route every day with food 0 0 Active biotin 2,500 mcg capsule Take by mouth. Active Adderall XR 20 mg 24 hr capsule Take 1 capsule (20 mg total) by mouth daily 2 Active BinaxNOW COVID-19 Ag Self Test kit 3 Active CLASSIFICATIONS OFFICER CC/CM Thyroid 90 mg tablet TAKE 1 TABLET BY MOUTH EVERY DAY 30 MINUTES BEFORE BREAKFAST 3 Active progesterone (PROMETRIUM) 200 mg capsule TAKE 1 CAPSULE BY MOUTH EVERY NIGHT AFTER DINNER 3 Active cholestyramine (QUESTRAN) 4 gram powder TAKE 4G WITH LIQUID AND DRINK BY MOUTH EVERY DAY WITH A MEAL. AVOID OTHER MEDS WITHIN 1 HOURS BEFORE OR 4 - 6 HOURS AFTER 4 Active omeprazole (PriLOSEC) 40 mg capsule 5 Active ondansetron ODT (ZOFRAN-ODT) 8 mg disintegrating tablet 4 Active CLASSIFICATIONS OFFICER CC/CM Thyroid 60 mg tablet TAKE 1 TABLET BY MOUTH 30 MINUTES BEFORE BREAKFAST EVERY DAY 4 Active hydroCHLOROthiazid e (HYDRODIURIL) 25 mg tablet TAKE 1 TABLET(25 MG) BY MOUTH DAILY 90 tablet 3 5 Active potassium chloride ER (KLOR-CON) 10 mEq CR tabletIndications: Insulin resistance Take 2 tablet/capsul e (20 mEq total) by mouth daily 180 tablet 2 5 Active tirzepatide, weight loss, (ZEPBOUND) 7.5 mg/0.5 mL solution vialIndications:Cl ass 1 obesity due to excess calories with serious comorbidity and body mass index (BMI) of 33.0 to 33.9 in adult Inject 0.5 mL (7.5 mg total) under the skin every 7 days 2 mL 1 5 Active Active Problems Problem Noted Date Diagnosed Date Diuretic-induced hypokalemia 09/29/2022 Assessment & Plan (01/05/2024 4:22 PM CDT): Continue potassium supplementation Assessment & Plan (05/31/2023 3:09 PM EVENT DESIGNER): Continue potassium supplementation Assessment & Plan (09/29/2022 1:28 PM CDT): Update seum K Continue KCL Class 1 obesity due to exces s calories with serious comorbidity in adult 06/24/2021 Assessment & Plan (06/24/2021 2:47 PM EVENT DESIGNER): Diet and exercise With a component of insulin resistance Will; try Ozempic Insulin resistance 06/24/2021 Assessment & Plan (01/05/2024 4:21 PM CDT): Will try to restart Ozempic Prescription sent Samples also provided Assessment & Plan (05/31/2023 3:09 PM EVENT DESIGNER): Continue working on diet and exercise Provided [...] mg Assessment & Plan (06/24/2021 2:48 PM EVENT DESIGNER): Diet and exercise Try Ozempic Hypercalciuria, 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 Assessment & Plan (01/05/2024 4:21 PM CDT): Continue hydrochlorothiazide 25 mg daily Assessment & Plan (05/31/2023 3:09 PM EVENT DESIGNER): Continue with hydrochlorothiazide Assessment & Plan (09/29/2022 1:26 PM CDT): Check serum Ca Continue HCTZ Assessment & Plan (09/30/2021 3:53 PM CDT): Continue HCTZ Check BMP, calciuria Will get report of DEXA today Assessment & Plan (06/24/2021 2:46 PM EVENT DESIGNER): Continue HCTZ Check calciuria Check DEXA Assessment & Plan (03/05/2020 10:56 AM CDT): continue HCTZ Assessment & Plan (07/11/2019 12:32 PM EVENT DESIGNER): Continue HCTZ Assessment & Plan (03/21/2019 2:53 PM CDT): Check calciuria Continue HCTZ Assessment & Plan (01/25/2018 4:08 PM CDT): Continue HCTZ Check BMP Assessment & Plan (03/30/2017 3:12 PM CDT): Continue HCTZ Weight gain 11/24/2016 Assessment & Plan (03/05/2020 10:56 AM CDT): Restart phentermine Diet and exercise discussed and recommended WW recommended, to track calories. Assessment & Plan (07/11/2019 12:33 PM EVENT DESIGNER): Pt working hard ondiet and exercise D/c Depade Will try Phentermine Pt to track calories with MyPal rgegg . Assessment & Plan (11/24/2016 9:32 AM [...] on file Legal Sex Female 10:47 AM EVENT DESIGNER Gender Identity Not on file Sexual Orientation Not on file Obstetrics History Last Filed Vital Signs Vital Sign Reading Time Taken Comments Blood Pressure 102/60 07/25/2024 2:06 PM EVENT DESIGNER Pulse 93 07/25/2024 2:06 PM EVENT DESIGNER Temperature - - Respiratory Rate 20 07/25/2024 2:06 PM EVENT DESIGNER Oxygen Saturation - - Inhaled Oxygen Concentration - - Weight 72.5 kg (159 lb 12.8 oz) 07/25/2024 2:06 PM EVENT DESIGNER Height 160 cm (5' 3) 07/25/2024 2:06 PM EVENT DESIGNER Body Mass Index 28.31 07/25/2024 2:06 PM EVENT DESIGNER Plan of Treatment Health Maintenance Due Date Last Done Comments Breast Cancer Screening-Mammogram 1973 Cervical Cancer Screening 1973 Colon Cancer Screening-Colonoscopy 1973 Hepatitis C Screening 1973 Hepatitis B Screening 1991 Regular Well Visit/Exam 18-64 1991 Zoster Vaccine (1 of 2) 2023 Depression Screening 01/04/2025 01/05/2024, 09/30/2021, 03/05/2020, Additional history exists Covid-19 Vaccine (2 - 2024- season) 2025 06/20/2021 Influenza Vaccine (#1) 2025 04/03/2018 DTaP/Tdap/Td Vaccine (3 - Td or Tdap) 04/04/2028 04/04/2018, 04/03/2018 Pneumococcal vaccine <65 Aged Out No longer eligible based on patient's age to complete this topic Insurance [employer] OPEN ACCESS [employer] OPEN ACCESS Care Teams Scientist Propagator Relationship Specialty Start Date End Date Cee Hawkins MD PCP - General Family Medicine 09/04/21
[2025-02-20 21:44] VITALS: BP 126/79; PULSE 77; RESP 16; O2SAT 99
== END 2025-02-20 21:46 | disposition home or self-care (01) ==
PROVIDERS: Emergency Provider Student in an Organized Health Care Education/Training Program; PCP Family Medicine
DX: S90.32XA Contusion of left foot, initial encounter (principal); F98.8 Other specified behavioral and emotional disorders with onset usually occurring in childhood and adolescence; F41.1 Generalized anxiety disorder; Y93.B3 Activity, free weights; W20.8XXA Other cause of strike by thrown, projected or falling object, initial encounter
CPT/HCPCS: 73630; 96372; 99283; J1885

== ENCOUNTER 2025-02-23 11:18 | Outpatient (CLI) | payer OTHER, SELFPAY ==
[2025-02-23 13:49] LABS: Toxigenic C. Diff POSITIVE (NEGATIVE)
== END 2025-02-23 11:19 | disposition home or self-care (01) ==
LOC: ANHLAB 11:19
PROVIDERS: PCP Family Medicine; Visit Provider Nurse Practitioner Family
DX: R19.7 Diarrhea, unspecified (principal)
CPT/HCPCS: 87493